=== PATIENT | female | born 1995 | race Caucasian/White ===

== ENCOUNTER 2019-10-24 10:26 | Emergency (ER) | payer MEDICAID, SELFPAY ==
[2019-10-24 10:56] VITALS: BP 116/76; PULSE 85; RESP 16; TEMP 36.6; O2SAT 100; BMI 24.1
== END 2019-10-24 12:16 | disposition left against medical advice (07) ==
LOC: ER 11-03 13:04
PROVIDERS: Emergency Provider Family Medicine; Family Provider Family Medicine
DX: H57.10 Ocular pain, unspecified eye (principal); Z53.21 Procedure and treatment not carried out due to patient leaving prior to being seen by health care provider
CPT/HCPCS: 99281

== ENCOUNTER 2022-02-22 20:03 | Outpatient (CLI) | payer MEDICAID, SELFPAY ==
[2022-02-22] VITALS (13 sets, daily range): BP systolic 126–128; BP diastolic 67–70; PULSE 131–144; RESP 17; TEMP 36.8–37.3; O2SAT 98–100; BMI 34.5
[2022-02-22 20:40] LABS: Add Urine Culture? No; Bacteria Urine TRACE /hpf; Bilirubin Urine Neg (Negative); Blood Urine Neg (Negative); Glucose Urine UA Trace (Normal); Ketones Urine 2+ (Negative); Leukocyte Esterase Urine Negative (Negative); Nitrate Urine Negative (Negative); Protein Urine Neg (Negative); RBC Urine 0-4 /hpf (0-2); Specific Gravity, Urine 1.015 (1.005-1.030); Squamous Epithelial Cell Urine 0-4 /hpf (0-5); Urine Appearance Clear (CLEAR); Urine Color Yellow (Yellow); Urobilinogen Urine Norm (Negative); WBC Urine 0-4 /hpf (0-5); pH Urine 6 (5-7)
[2022-02-22 21:14] LABS: Amphetamines Screen Urine Negative (Negative); Barbiturates Screen Urine Negative (Negative); Benzodiazepines Screen Urine Negative (Negative); Cocaine Screen Urine Negative (Negative); Opiate Screen Urine Negative (Negative); PCP Screen Urine Negative (Negative); THC Screen Urine Negative (Negative)
== END 2022-02-22 21:03 | disposition home or self-care (01) ==
LOC: OPOB 20:04 → OBGYN 20:06
PROVIDERS: Family Provider Obstetrics & Gynecology; Visit Provider Obstetrics & Gynecology
DX: O26.899 Other specified pregnancy related conditions, unspecified trimester (principal); Z3A.00 Weeks of gestation of pregnancy not specified; M54.50 Low back pain, unspecified
CPT/HCPCS: 80306; 81001; 99211

== ENCOUNTER 2022-02-22 21:09 | Emergency (ER) | payer MEDICAID, SELFPAY ==
[2022-02-22 21:23] VITALS: BP 131/86; PULSE 142; RESP 18; TEMP 37.3; O2SAT 100
--- NOTE | 2022-02-22 22:01 | ED_ITS ---
HPI - Abdominal Pain General: Chief Complaint: Abdominal Pain Stated Complaint: lower back pain/nausea/vomiting Time Seen by Provider: 02/22/22 22:01 History of Present Illness: Ms. Suarez is a 27-year-old lady currently approximately 20 weeks without care for this who presents to the emergency department due to low back pain and abdominal pain. She reports symptoms started approximately 1:30 PM at rest. She initially had low back pain which was bilateral and at about 630 this began to radiate towards her mid abdomen. Associated nausea and vomiting x2. Denies constipation or diarrhea. No urinary symptoms. No vaginal bleeding or discharge. She has had a total of 5 pregnancies including this 1 and no complications with exception of monitoring for possible preeclampsia which she did not develop. Otherwise denies infectious symptoms. Symptom intensity is moderate. Course has persisted. No other specific changes in health, exacerbating, or alleviating factors identified. Onset (ago): hour(s) Pain Consistency: constant Severity: mild Quality: aching Exacerbating factors: nothing Related Data: Date of Last Menstrual Period: 04/24/19 Review of Systems General: Reports: 10 or more systems reviewed and unremarkable except in HPI and below PFSH ED PFSH: Medical History No significant past medical history Surgical History No significant past surgical history Social History Smoking and tobacco status: never smoked Female Reproductive History: Date of last menstrual period: 04/24/19 Physical Exam Const: COMMON NORMALS: alert GENERAL APPEARANCE: cooperative and well developed HENMT: COMMON NORMALS: normocephalic and atraumatic HEAD & SCALP: normocephalic and atraumatic Eye: COMMON NORMALS: conjunctivae normal CONJUNCTIVA: Yes conjunctivae normal SCLERA: sclerae normal Neck/C-Spine: COMMON NORMALS: supple GENERAL: Yes trachea midline Resp: COMMON NORMALS: normal respiratory effort and clear to auscultation bilaterally EFFORT & INSPECTION: Yes able to speak in complete sentences AUSCULTATION: clear to auscultation bilaterally Cardio: COMMON NORMALS: regular rhythm RATE: tachycardic RHYTHM: regular rhythm GI: COMMON NORMALS: Soft to palpation PALPATION: Yes Soft to palpation, Yes Tenderness to palpation present (GI) (mildly), No Guarding due to palpation present (GI) and No Rigid due to palpation OTHER: gravid Extremity: GENERAL: Yes normal exam except as noted and No edema Neuro: COMMON NORMALS: moves all extremities SENSORIUM/ORIENTATION: Yes alert and No Orientation impaired Psych: COMMON NORMALS: mental status grossly normal and Normal thought process present THOUGHT PROCESS: Normal thought process present Course ED course: - Patient was seen and evaluated by me at bedside - Patient placed on cardiac monitors, IV access obtained - Initial evaluation notable for exam as above. Mild generalized abdominal tenderness though no evidence of peritonitis or focality. Gravid abdomen. - Labs and xrays personally interpreted by me -Fluids, antiemetic, Tylenol given - Labs notable for no leukocytosis, hemoglobin normal. Metabolic panel with mild evidence of dehydration. Urinalysis not concerning for urinary tract infection. Negative self swab wet prep. - Imaging notable for single live intrauterine gestation estimated 16 weeks 3 days. Not concordant dates discussed with patient. No acute pathology identified on ultrasound. -Patient felt markedly improved upon reassessment. Low likelihood of significant other intra-abdominal process. Tachycardia likely multifactorial including physiologic and I am satisfied with improvement with fluids given absence of shortness of breath or chest pain. - Based on patient history, evaluation, and testing as interpreted the most likely cause of the patient's condition is abdominal pain affecting - The results of ED evaluation were discussed with the patient including prescriptions and/or symptomatic cares (if applicable) including appropriate and responsible use, followup plan, and return precautions. The patient verbalized understanding and felt safe for discharge. - Patient discharged in satisfactory condition. Note: Click bubbles or prepopulated [place]keefe in note writing are used for assistance with data collection and billing and are inherently more limited than narrative and other text portions of this note. Please use narrative for additional clinical history and defer to narrative/free test for any case of contradictory information. If information appears in only free text or click bubble it should be considered present or absent as reported. Please contact note information writer for clarifications of clinical information or contradictory information. MDM is a brief summary, contradictory or erroneous seeming information should be clarified and full note should be reviewed. Vital Signs: Vital signs: Vital Signs Temperature 99.2 F 02/22/22 21:23 Pulse Rate 102 H 02/23/22 02:12 Respiratory Rate 16 02/23/22 02:12 Blood Pressure 119/66 02/23/22 02:12 Pulse Oximetry 98 02/23/22 02:12 MDM - Abdominal Pain Medical Decision Making 27-year-old lady estimated 20 weeks without care to this point presenting with low back pain radiating to abdomen. ED evaluation only notable for mild dehydration. Ultrasound performed. Patient improved upon reassessment. Patient plans to call and establish with her prior OB in the next day. Return precautions given. Satisfactory for outpatient management. Medical Records I reviewed the patient's medical records. Lab Data I reviewed the patient's lab results. : 02/22/22 22:19 02/22/22 22:19 Labs/Radiology: Radiology Impressions Obstetrics Ultrasound 02/22/22 22:15 IMPRESSION: 1. Single live intrauterine gestation of 16 weeks 3 days by ultrasound. Ultrasound and clinical dates are non concordant. 2. Normal Doppler evaluation of both ovaries. Laboratory Results WBC 5.6 10^3/uL (4.0-10.0) 02/22/22 22:19 RBC 4.19 10^6/uL (4.1-5.3) 02/22/22 22:19 Hgb 12.8 g/dL (11.5-15.3) 02/22/22 22:19 Hct 35.6 % (37.0-47.0) L 02/22/22 22:19 MCV 85.0 fl (81-99) 02/22/22 22:19 MCH 30.5 pg (28.0-34.0) 02/22/22 22:19 MCHC 36.0 g/dL (30.0-36.0) 02/22/22 22:19 RDW 12.3 % (12.1-15.1) 02/22/22 22:19 Plt Count 176 10^3/cmm (130-400) 02/22/22 22:19 MPV 10.7 fL (7.4-10.4) H 02/22/22 22:19 Neut % (Auto) 91.3 % 02/22/22 22:19 Lymph % (Auto) 3.2 % 02/22/22 22:19 [place] % (Auto) 4.8 % 02/22/22 22:19 Eos % (Auto) 0.0 % 02/22/22 22:19 Baso % (Auto) 0.2 % 02/22/22 22:19 Neut # (Auto) 5.10 10^3/uL (1.8-7.7) 02/22/22 22:19 Lymph # (Auto) 0.2 10^3/uL (0.8-4.8) L 02/22/22 22:19 [place] # (Auto) 0.3 10^3/uL (0.2-0.9) 02/22/22 22:19 Eos # (Auto) 0.0 10^3/uL (0.0-0.8) 02/22/22 22:19 Baso # (Auto) 0.0 10^3/uL (0.0-0.1) 02/22/22 22:19 Nucleated RBC % (auto) 0 % 02/22/22 22:19 Nucleated RBCs # 0.0 /100WBC 02/22/22 22:19 Sodium 133 mmol/L (136-145) L 02/22/22 22:19 Potassium 3.5 mmol/L (3.5-5.1) 02/22/22 22:19 Chloride 99 mmol/L (98-107) 02/22/22 22:19 Carbon Dioxide 21 mmol/L (22-29) L 02/22/22 22:19 Anion Gap 16.5 (5-19) 02/22/22 22:19 BUN 5 mg/dL (6-20) L 02/22/22 22:19 Creatinine 0.4 mg/dL (0.5-0.9) L 02/22/22 22:19 GFR Calculation 190.1 mL/min (90-130) H 02/22/22 22:19 Glucose 98 mg/dL (65-115) 02/22/22 22:19 Calculated Osmolality 273 mOsm/kg (285-295) L 02/22/22 22:19 Calcium 9.0 mg/dL (8.5-10.5) 02/22/22 22:19 Total Bilirubin 0.3 mg/dL (0.15-1.2) 02/22/22 22:19 AST 14 U/L (0-32) 02/22/22 22:19 ALT 17 U/L (0-33) 02/22/22 22:19 Alkaline Phosphatase 76 IU/L (35-105) 02/22/22 22:19 Total Protein 7.4 g/dL (6.6-8.7) 02/22/22 22:19 Albumin 4.2 g/dL (3.5-5.2) 02/22/22 22:19 Globulin 3.2 g/dL (1.3-4.6) 02/22/22 22:19 Lipase 17 U/L (13-60) 02/22/22 22:19 Urine Color Yellow (Yellow) 02/22/22 23:40 Urine Appearance Clear (CLEAR) 02/22/22 23:40 Urine pH 5 (5-7) 02/22/22 23:40 Ur Specific [place] 1.015 (1.005-1.030) 02/22/22 23:40 Urine Protein Neg (Negative) 02/22/22 23:40 Urine Glucose (UA) Norm (Normal) 02/22/22 23:40 Urine Ketones 2+ (Negative) H 02/22/22 23:40 Urine Blood Neg (Negative) 02/22/22 23:40 Urine Nitrate Negative (Negative) 02/22/22 23:40 Urine Bilirubin Neg (Negative) 02/22/22 23:40 Urine Urobilinogen Norm mg/dL (Negative) 02/22/22 23:40 Ur Leukocyte Esterase Negative (Negative) 02/22/22 23:40 Discharge Plan Discharge Patient Disposition: Home Clinical Impression: Back pain affecting , Abdominal pain affecting , Dehydration, mild Condition: Stable Prescriptions: New pyridoxine (vitamin B6) 25 mg tablet 25 mg PO TID PRN (Reason: nausea and vomiting) Qty: 20 0RF Sleep Aid (doxylamine) 25 mg tablet 25 mg PO TID PRN (Reason: nausea and vomiting) Qty: 20 0RF Discharge Orders: Discharge ED (Routine); Ordered 02/23/22 Ordered By: Sánchez Gayle Discharge Diet: Advance as tolerated and Clear Liquid Patient Instructions: Dehydration (ED), Abdominal Pain in (ED) Activity Restrictions/Additional Instructions: Thank you for visiting the emergency department. You were seen and evaluated for back pain and abdominal pain as well as nausea vomiting during . The exact cause of your symptoms is unclear though we are pleased that there improved with treatment. You may continue to use Tylenol as needed however do not use NSAIDs during . Please do not exceed the daily recommended dosage. Please follow-up on Saturday with your transportation security screener. Based on ultrasound your are 16 weeks 3 days. Please return to the emergency department for worsening symptoms or anything else that you are concerned about a feel needs emergency department evaluation. Coding Level of Care Code ED [employer] for Leah Loja
--- NOTE | 2022-02-22 22:15 | USR_ITS ---
PROCEDURE INFORMATION: Exam: US , Limited and US Duplex Artery or Vein, Ovaries, Limited Exam date and time: 02/22/2022 10:58 PM Age: 27 years old Clinical indication: complicated by abdominal or pelvic pain; Other: Bilateral pelvic pain radiating to the back today; Gestational age or lmp: Per lmp = 20w 3 d with christina = 07/09/2022; Per u/s = 16w 3d with christina = 08/06/2022; ; Patient HX: Back and pelvic pain, approx 20 weeks preg, no care. No vag bleed TECHNIQUE: Imaging protocol: Real-time ultrasound of the maternal uterus with image documentation. Exam focused on the clinical indication. Real-time duplex ultrasound scan of the arterial or venous flow of the ovaries with B-mode, color Doppler flow and spectral waveform analysis, limited duplex. COMPARISON: [facility] OB > 14 weeks 11/24/2018 8:35 AM FINDINGS: Gestation: Single live intrauterine gestation. heart rate: 164 beats per minute. presentation: Breech presentation. Placenta: Anterior placenta. The distal placental margin is not visible relative to the cervix. Amniotic fluid index: 10.8 cm. stomach: Limited anatomic evaluation demonstrates fluid in the stomach, no hydronephrosis grossly unremarkable brain, fluid in the urinary bladder, unremarkable spine, and both upper extremities. BIOMETRY: Gestational age (AUA): 16 weeks 3 days Estimated due date (AUA): 08/06/2022 by ultrasound (07/09/2022 by LMP) Estimated weight: 152 g Biparietal diameter (BPD): 16 weeks 3 days Head circumference (HC): 16 weeks 4 days Abdominal circumference (AC): 16 weeks 0 days Femur length (FL): 16 weeks 3 days MATERNAL: Right ovary/adnexa: The right ovary is morphologically normal. There is normal blood flow in the right ovary. The right ovary measures 4.1 x 3.3 x 3.1 cm. Left ovary/adnexa: The left ovary is morphologically normal. There is normal blood flow in the left ovary. The left ovary measures 3.7 x 3.4 x 1.9 cm. US/US OB >=14 wk fetus w transvag IMPRESSION: 1. Single live intrauterine gestation of 16 weeks 3 days by ultrasound. Ultrasound and clinical dates are non concordant. 2. Normal Doppler evaluation of both ovaries.
[2022-02-22] MEDS: sodium chloride 0.9% 1,000 ML 999 ML IV (22:20)
--- NOTE | 2022-02-22 22:20 | PC.NURSE ---
patient states headache has resolved. requesting something to eat and drink.
[2022-02-22 22:26] LABS: Basophils % 0.2 %; Hematocrit 35.6 % (37.0-47.0); Hemoglobin 12.8 g/dL (11.5-15.3); Lymphocytes # 0.2 10^3/uL (0.8-4.8); Lymphocytes % 3.2 %; Mean Corpuscular Hemoglobin 30.5 pg (28.0-34.0); Mean Platelet Volume 10.7 fL (7.4-10.4); Monocytes # 0.3 10^3/uL (0.2-0.9); Monocytes % 4.8 %; Neutrophils % 91.3 %; Nucleated Red Blood Cells % 0 %; Platelet Count 176 10^3/cmm (130-400); Red Blood Count 4.19 10^6/uL (4.1-5.3); Red Cell Distribution Width 12.3 % (12.1-15.1); White Blood Count 5.6 10^3/uL (4.0-10.0)
[2022-02-22] MEDS: acetaminophen 1,000 MG/100 ML PIGGYBACK 400 MG IV (22:35)
[2022-02-22] MEDS: ondansetron 2 mg/ML SDV 2 mL 4 MG IVP (22:36)
[2022-02-22 22:46] LABS: Alanine Aminotransferase 17 U/L (0-33); Albumin Level 4.2 g/dL (3.5-5.2); Alkaline Phosphatase 76 IU/L (35-105); Anion Gap 16.5 (5-19); Aspartate Amino Transferase 14 U/L (0-32); Blood Urea Nitrogen 5 mg/dL (6-20); Carbon Dioxide 21 mmol/L (22-29); Chloride 99 mmol/L (98-107); Globulin 3.2 g/dL (1.3-4.6); Glomerular Filtration Rate 190.1 mL/min (90-130); Glucose 98 mg/dL (65-115); Lipase 17 U/L (13-60); Osmolality Calculated 273 mOsm/kg (285-295); Potassium 3.5 mmol/L (3.5-5.1); Sodium 133 mmol/L (136-145); Total Bilirubin 0.3 mg/dL (0.15-1.2); Total Protein 7.4 g/dL (6.6-8.7)
[2022-02-22 23:48] LABS: Add Urine Microscopic? NO; Bilirubin Urine Neg (Negative); Blood Urine Neg (Negative); Charge for UA Resulting for Rev; Glucose Urine UA Norm (Normal); Ketones Urine 2+ (Negative); Leukocyte Esterase Urine Negative (Negative); Nitrate Urine Negative (Negative); Protein Urine Neg (Negative); Specific Gravity, Urine 1.015 (1.005-1.030); Urine Appearance Clear (CLEAR); Urine Color Yellow (Yellow); Urobilinogen Urine Norm (Negative); pH Urine 5 (5-7)
[2022-02-23 00:03] VITALS: BP 113/58; PULSE 125; RESP 18; O2SAT 98
[2022-02-23] MEDS: sodium chloride 0.9% 1,000 ML 999 ML IV (00:45)
[2022-02-23 01:30] VITALS: BP 116/77; PULSE 111; RESP 16; O2SAT 98
[2022-02-23 02:12] VITALS: BP 119/66; PULSE 102; RESP 16; O2SAT 98
== END 2022-02-23 02:13 | disposition home or self-care (01) ==
PROVIDERS: Emergency Medicine; Emergency Provider Emergency Medicine
DX: O99.891 Other specified diseases and conditions complicating pregnancy (principal); M54.50 Low back pain, unspecified; R10.9 Unspecified abdominal pain; O99.282 Endocrine, nutritional and metabolic diseases complicating pregnancy, second trimester; E86.0 Dehydration; Z3A.20 20 weeks gestation of pregnancy
CPT/HCPCS: 76805; 76817; 80053; 81003; 83690; 85025; 87210; 96361; 96374; 96375; 99284; J2405; J7030

== ENCOUNTER 2022-04-11 07:56 | Outpatient (CLI) | payer MEDICAID, SELFPAY ==
--- NOTE | 2022-04-11 08:01 | US_ITS ---
WS: [id number] ULTRASOUND OB COMPLETE TECHNIQUE: Complete ultrasound. CLINICAL INFORMATION: 2nd TRIMESTER SUPERVISION OF COMPARISON: February 22, 2022 FINDINGS: Cervix measures 3.1 cm Single interuterine gestation is identified with cephalic presentation. Placenta is anterior. Placenta grade 0. Normal amniotic fluid volume. cardiac activity: 147 BPM. AGA: 23w1d DONNA by ultrasound: 08/07/2022 Estimated weight: 561 g., %. BDP: 5.5 cm = 22w4d HC: 21.3 cm = 23w2d AC: 18.3 cm = 23w1d FEMUR LENGTH: 4.0 cm = 23w0d Anatomic survey: profile, lips/nose, and C-spine not visualized. Anatomic survey is otherwise normal. Normal stomach. Kidneys and bladder are normal. Normal 3 vessel cord. Normal 3 vessel cord insertion. Normal 4 chamber heart. Normal spine. Intracranial contents are normal. Normal posterior fossa and cisterna magna. US/US OB >= 14 weeks fetus [id number] IMPRESSION: 1. Single intrauterine with visualized cardiac activity. AGA 23w1d w ith DONNA 08/07/2022. 2. Placenta is anterior. No evidence of abruption or previa. 3. profile, lips/nose, and C-spine not visualized. Additional attempt co uld be performed in one to 2 weeks. 4. Anatomic survey otherwise normal. 5. Normal amniotic fluid volume.
== END 2022-04-11 07:57 | disposition home or self-care (01) ==
LOC: RAD 07:56
PROVIDERS: Visit Provider Family Medicine
DX: Z34.92 Encounter for supervision of normal pregnancy, unspecified, second trimester (principal); Z3A.23 23 weeks gestation of pregnancy
CPT/HCPCS: 76805

== ENCOUNTER 2022-08-07 11:35 | Inpatient (IN) | payer MEDICAID, SELFPAY ==
[2022-08-07] VITALS (45 sets, daily range): BP systolic 109–144; BP diastolic 59–83; PULSE 80–141; RESP 16–18; TEMP 36.1–36.3; O2SAT 98–100; BMI 37.4
[2022-08-07] MEDS: dextrose 5%-lactated ringers 1,000 ML 125 ML IV (12:19)
[2022-08-07] MEDS: oxytocin 30 UNIT/500 ML BAG IV (12:19)
[2022-08-07 12:23] LABS: Basophils % 0.1 %; Eosinophils % 0.5 %; Hemoglobin 11.9 g/dL (11.5-15.3); Lymphocytes # 1.3 10^3/uL (0.8-4.8); Lymphocytes % 15.6 %; Mean Corpuscular Hemoglobin 30.2 pg (28.0-34.0); Mean Corpuscular Volume 86.3 fl (81-99); Mean Platelet Volume 10.7 fL (7.4-10.4); Monocytes # 0.5 10^3/uL (0.2-0.9); Monocytes % 5.6 %; Neutrophils % 77.7 %; Nucleated Red Blood Cells % 0 %; Platelet Count 202 10^3/cmm (130-400); Red Blood Count 3.94 10^6/uL (4.1-5.3); Red Cell Distribution Width 12.8 % (12.1-15.1); White Blood Count 8.4 10^3/uL (4.0-10.0)
--- NOTE | 2022-08-07 18:17 | ANES.PREANE2 ---
Pre-Anesthetic Assessment Height/Weight: Height 1.68 m Weight 105.233 kg Temp Pulse Resp BP Pulse Ox O2 Del Method 97.0 F L 93 18 116/59 100 08/07/22 18:00 08/07/22 18:00 08/07/22 12:00 08/07/22 18:00 08/07/22 17:48 08/07/22 12:00 epidural Familial anesthetic complications: none Exam alert, oriented x 3, clear to auscultation bilaterally and regular rate & rhythm Airway Mallampati: Class II Dentition: full Anesthetic Plan ASA status: 2 Anesthesia: Regional (specify below) Risk of > 500 ml blood loss (7ml/kg in children): Yes, adequate IV access and fluids planned Medications/Allergies Home Medications Medication Instructions Recorded Confirmed Last Taken Type doxylamine succinate 25 mg tablet 25 mg PO TID PRN nausea and 02/23/22 Unknown Rx (Sleep Aid (doxylamine)) vomiting #20 tabs pyridoxine (vitamin B6) 25 mg 25 mg PO TID PRN nausea and 02/23/22 Unknown Rx tablet vomiting #20 tabs Allergies Allergy/AdvReac Type Severity Reaction Status Date / Time No Known Allergies Allergy Verified 02/22/22 20:57 Current Medications Generic Name Dose Route Start Last Admin Trade Name Freq PRN Reason Stop Dose Admin Dextrose/Lactated Ringer's 1,000 mls @ 125 mls/hr 08/07/22 12:00 08/07/22 12:19 Dextrose 5%-Lactated Ringers IV 125 mls/hr .Q8H BUD Administration Oxytocin 30 unit in 500 mls @ 1 mls/hr 08/07/22 12:00 08/07/22 14:35 Pitocin IV 20 milliunit/min .Q24H BUD 20 mls/hr Titration Protocol 1 MILLIUNIT/MIN PFSH Anesthesia Medical History No significant past medical history Surgical History No significant past surgical history Social History Smoking and tobacco status: never smoked Female Reproductive History Date of last menstrual period: 04/24/19 : 5 Data Anesthesia 08/07/22 12:00 Short CBC 08/07/22 Range/Units 12:00 WBC 8.4 (4.0-10.0) 10^3/uL Hgb 11.9 (11.5-15.3) g/dL Hct 34.0 L (37.0-47.0) % MCV 86.3 (81-99) fl Plt Count 202 (130-400) 10^3/cmm Neut % (Auto) 77.7 % Neut # (Auto) 6.50 (1.8-7.7) 10^3/uL Cardiac Studies: No Data to Display Anesthesia Procedures Epidural Time Out Performed: Yes Consents Signed: Procedure Consent Consent: requested by attending/covering physician and patient agrees to proceed Lumbar Level: L3-L4 Epidural position: sitting Epidural procedure: sterile prep of area, 1% lidocaine to numb the area, 18 g needle, negative for paresthesia passed, neg for paresthesia, test dose given, 1.5% xylocaine 1:200k epi (5 ml), 0.2% Ropivacaine bolus ml ( 5), placed PCEA, no systemic response, sterile dressing applied, L.U.D. no apparent complications and 0.2% Ropiavacaine @ mls/hr
--- NOTE | 2022-08-07 20:45 | P.PCNOB_ITS ---
Delivery Note: Date of delivery: August 07, 2022 Procedure: Normal spontaneous vaginal Delivering Physician: Crystal Gandhi MD Estimated blood loss (mL): 300 Pre-Delivery Course: Mother had routine care at [facility]. She was blood type B+ antibody negative, rubella immune, HIV nonreactive, hepatitis B nonreactive, hepatitis C nonreactive, RPR nonreactive, UDS negative, GC chlamydia negative, she passed her glucose tolerance test, GBS negative. There were no complications during the . Delivery: This is a 27-year-old at 40 weeks 1 day gestation who presented for an elective induction. Her cervix was favorable so she was started on Pitocin. She received an epidural for pain management. She underwent artificial rupture of membranes with clear fluid. Rupture membranes was approximately 3-1/2 hours prior to delivery. She had a normal spontaneous vaginal delivery of a viable female weight 3690 g, Apgars 8 and 9 over an intact perineum. The was suctioned at delivery and placed on the mother's chest. The cord was clamped and cut. The placenta was delivered grossly intact and normal to inspection. There were no lacerations. Mother and were doing well after delivery. Coding Level of Care Code Acute Mobile Home Set Up Person for Leah Loja
--- NOTE | 2022-08-07 20:45 | PM.OPHPUD ---
Labor & Delivery H&P Update Date of Procedure: August 07, 2022 Date H&P Performed: 08/02/22 Admission Diagnosis: Planned procedure: induction of labor
[2022-08-07] MEDS: ibuprofen 800 mg tablet PO (23:14)
[2022-08-08 01:35] VITALS: BP 129/73; PULSE 111; RESP 16; TEMP 36.7; O2SAT 97
[2022-08-08 02:35] VITALS: BP 114/67; PULSE 89; RESP 16; O2SAT 96
[2022-08-08 06:35] VITALS: BP 133/78; PULSE 90; RESP 16; O2SAT 96
--- NOTE | 2022-08-08 08:00 | ANE.PACU2 ---
Inpatient post-anesthesia follow up: Airway intact: Yes Vital signs: Temperature 97.9 F Pulse Rate 82 Respiratory Rate 16 Blood Pressure 125/82 Pulse Oximetry 98 Oxygen Delivery Me thod Room Air Oxygen Flow Rate Fraction of Inspir ed Oxygen Hydration adequate: Yes Nausea and vomiting: No Pain level: 1 Mental status: Baseline
[2022-08-08] MEDS: prenatal vitamin Capsule 1 CAP PO (08:46)
[2022-08-08] MEDS: ibuprofen 800 mg tablet PO ×2 (08:46→15:11)
[2022-08-08] MEDS: docusate sodium 100 mg Capsule PO ×2 (08:46→18:24)
[2022-08-08 09:02] LABS: Hematocrit 33.1 % (37.0-47.0); Hemoglobin 11.1 g/dL (11.5-15.3); Mean Corpuscular HGB Conc 33.5 g/dL (30.0-36.0); Mean Corpuscular Hemoglobin 29.8 pg (28.0-34.0); Mean Corpuscular Volume 88.7 fl (81-99); Platelet Count 185 10^3/cmm (130-400); Red Blood Count 3.73 10^6/uL (4.1-5.3); Red Cell Distribution Width 13.1 % (12.1-15.1); White Blood Count 9.5 10^3/uL (4.0-10.0)
[2022-08-08 10:00] VITALS: BP 129/84; PULSE 78; RESP 16; TEMP 36.7
[2022-08-08 16:00] VITALS: BP 135/84; PULSE 78; RESP 16; TEMP 36.8; O2SAT 98
--- NOTE | 2022-08-08 17:00 | PM.DCS ---
Discharge Providers Date of Admission: 08/07/22 11:35 Date of Discharge: August 08, 2022 Attending Provider at Admission: Crystal Gandhi MD Attending Provider at Discharge: Crystal Gandhi MD Reason for Visit Reason for Visit: Induction of Labour Hospital Course Hospital Course This is a 27-year-old G5 now P5 who was admitted for an elective induction at 40 weeks 1 day gestation. She had a normal spontaneous vaginal delivery of a viable female . She and the have done well . She is requesting discharge home at 24 hours. She says her bleeding is not bad and she does not have any significant pain. Physical Exam Narrative: Alert and oriented, sitting up in bed eating dinner. Abdomen soft nontender, fundus is firm and U- 3, extremities have 1+ edema but no calf tenderness Urinary Catheter Management: Moreno: Cath Placed During This Visit: yes, but has since been removed by the nurse Reason for Continuing Indwelling Catheter: Required Immobilization for Trauma or Surgery or Anesthesia Urinary Catheter Date of Insertion: 08/07/22 Urinary Catheter Time of Insertion: 17:45 Date Urinary Catheter Removed: 08/07/22 Time Urinary Catheter Discontinued: 20:23 Discharge Data Studies Completed and Pending Laboratory Results WBC 9.5 10^3/uL (4.0-10.0) 08/08/22 08:50 RBC 3.73 10^6/uL (4.1-5.3) L 08/08/22 08:50 Hgb 11.1 g/dL (11.5-15.3) L 08/08/22 08:50 Hct 33.1 % (37.0-47.0) L 08/08/22 08:50 MCV 88.7 fl (81-99) 08/08/22 08:50 MCH 29.8 pg (28.0-34.0) 08/08/22 08:50 MCHC 33.5 g/dL (30.0-36.0) 08/08/22 08:50 RDW 13.1 % (12.1-15.1) 08/08/22 08:50 Plt Count 185 10^3/cmm (130-400) 08/08/22 08:50 MPV 11.0 fL (7.4-10.4) H 08/08/22 08:50 Neut % (Auto) 77.7 % 08/07/22 12:00 Lymph % (Auto) 15.6 % 08/07/22 12:00 [place] % (Auto) 5.6 % 08/07/22 12:00 Eos % (Auto) 0.5 % 08/07/22 12:00 Baso % (Auto) 0.1 % 08/07/22 12:00 Neut # (Auto) 6.50 10^3/uL (1.8-7.7) 08/07/22 12:00 Lymph # (Auto) 1.3 10^3/uL (0.8-4.8) 08/07/22 12:00 [place] # (Auto) 0.5 10^3/uL (0.2-0.9) 08/07/22 12:00 Eos # (Auto) 0.0 10^3/uL (0.0-0.8) 08/07/22 12:00 Baso # (Auto) 0.0 10^3/uL (0.0-0.1) 08/07/22 12:00 Nucleated RBC % (auto) 0 % 08/07/22 12:00 Nucleated RBCs # 0.0 /100WBC 08/07/22 12:00 Vitals Last Vital Signs Temp 98.2 F 08/08/22 16:00 Pulse 78 08/08/22 16:00 Resp 16 08/08/22 16:00 BP 135/84 08/08/22 16:00 Pulse Ox 98 08/08/22 16:00 O2 Del Method 08/08/22 16:00 Discharge Plan Discharge Patient Disposition: Home Condition: Stable Prescriptions: Continued pyridoxine (vitamin B6) 25 mg tablet 25 mg PO TID PRN (Reason: nausea and vomiting) Qty: 20 0RF Sleep Aid (doxylamine) 25 mg tablet 25 mg PO TID PRN (Reason: nausea and vomiting) Qty: 20 0RF Discharge Orders: Discharge Order (Routine); Ordered 08/08/22 Ordered By: Crystal Gandhi Referrals: Crystal Gandhi MD [Physician] - 1 month Discharge Diet: Usual diet Discharge Activity: Limit activity as instructed Patient Instructions: Depression (DC), Bleeding (DC), Preeclampsia and Eclampsia After Delivery (GEN), OB Discharge Report, OB Food/Drug Interaction Guide, Opioid Safety, OB Home Care, OB Vaginal Deliveries Discharge Attestations Time Spent in Discharge Care*: less than 30 min Quality Metrics Clinical Quality Measures [ No reported AMI, CVA or VTE this stay] Coding Level of Care Code Acute Chg DC note
[2022-08-08 20:54] VITALS: BP 125/82; PULSE 82; RESP 16; TEMP 36.6; O2SAT 98
== END 2022-08-08 20:55 | disposition home or self-care (01) | DRG 807 ==
PROVIDERS: Admitting Provider Family Medicine; Visit Provider Family Medicine
DX: O48.0 Post-term pregnancy (principal); Z37.0 Single live birth; Z3A.40 40 weeks gestation of pregnancy
CPT/HCPCS: 36415; 51702; 59025; 59409; 85025; 85027; 99211; J2590; J2795; J7121

== ENCOUNTER 2024-11-04 10:30 | Inpatient (IN) | payer MEDICAID, SELFPAY ==
[2024-11-04] VITALS (56 sets, daily range): BP systolic 111–179; BP diastolic 56–128; PULSE 75–148; TEMP 36.2–36.4; O2SAT 100; BMI 38.0
--- OUTSIDE RECORDS SUMMARY | 2024-11-04 10:43 | XMS_ITS | Data Portability ---
Author Organization ALBA Mccrary [facility] Adelaida Ro [facility] Address [address] [address] Assessment No assessment recorded. Plan of Treatment Reminders Order Date Submit Date Provider Last Modified By Organization Details Last Modified Time Details Appointments None recorded. Lab streptococc us group B, culture, unspecified specimen [address] [facility], [address] [facility] [place], [address], 13:32:26 Referral None recorded. Procedures None recorded. Surgeries None recorded. Imaging None recorded. Medication Orders None recorded. Patient TargetsNo targets recorded. Patient InstructionsNo instructions recorded. Reason for Referral None Reported. Results Created Date Observation Date Name Description Value Unit Range Abnormal Flag Note LastModifiedBy Organization Detail LastModifiedTime 10/08/1910/11/2024 STREP TOCOC CUS, GROUP B CULTU RE streptococcu s, group B culture SEE NOTE STREP TOCOC CUS, GROUP B CULTU RE Micro Numbe r: [id number] Test Statu s: Final Speci men Sourc e: Vagin al/an orect al Speci men Quali ty: Adequ ate Resul t: No group B Strep tococ cus isola ruddy Note per CDC guide lines optim al recov magda is achie verona by swabb ing both the lower vagin a and rectu m (thro ugh the anal sphin cter) . Not Available [facility] [id number], [place], [address], 10/11/2024 13:32:26 Result Notes None recorded. Problems Name Problem SNOMED Code Status Onset Date Resolution Date Notes Provider Name and Address Organization Details Recorded Time [id number] Active MICHAEL LOMELIH BRANDI [facility] 4 15:33:09 Problem Notes None recorded. Procedures Surgical History Date Name Laterality Status Provider Name and Address Organization Details Recorded Time 06/10/2024 Date of Last Pap Smear completed MICHAEL LOMELIH BRANDI [facility] 08/12/2024 14:41:56 Imaging Results None recorded. Procedure Notes None recorded. Medical Equipment None Reported. Allergies No known drug allergies Medications Name Sig Start Date Stop Date Status Note LastModified by Organization Details LastModified Time 28 mg iron-800 mcg tablet Take 1 tablet every day by oral route for 90 days. active Not Available Not Available Not Avai lable M-Marielle Plus 27 mg iron-1 mg tablet TAKE ONE TABLET BY MOUTH EVERY DAY FOR 90 DAYS. 2024 completed Not Available Not Available Not Available Vitals Date Recorded Body height Body mass index (BMI) Body weight Body temperature Oxygen saturation Oxygen saturation in Arterial blood by Pulse oximetry Heart rate Systolic blood pressure Diastolic blood pressure Provider Name and Address Organization Details Last Updated DateTime 5 165.1 cm 38.1 kg/m2 501269. 65 g 97.9 [degF] 99 % 99 % 101 /min 120 mm[Hg] 80 mm[Hg] MICHAEL LOMELIH BRANDI [facility]ika 5 15:52:59 Date Recorded Body height Body mass index (BMI) Body weight Body temperature Oxygen saturation Oxygen saturation in Arterial blood by Pulse oximetry Heart rate Systolic blood pressure Diastolic blood pressure Provider Name and Address Organization Details Last Updated DateTime 5 165.1 cm 37.9 kg/m2 824213. 06 g 97.4 [degF] 99 % 99 % 72 /min 128 mm[Hg] 82 mm[Hg] JAE CONNER [facility], L.L[facility]CM[facility]ika 5 15:51:22 Date Recorded Body height Body mass index (BMI) Body weight Body temperature Oxygen saturation Oxygen saturation in Arterial blood by Pulse oximetry Heart rate Systolic blood pressure Diastolic blood pressure Provider Name and Address Organization Details Last Updated DateTime 5 165.1 cm 37.9 kg/m2 118512. 06 g 98.1 [degF] 99 % 99 % 92 /min 130 mm[Hg] 78 mm[Hg] MICHAEL MUKESH [facility] 5 14:06:46 Date Recorded Body height Body mass index (BMI) Body weight Body temperature Oxygen saturation Oxygen saturation in Arterial blood by Pulse oximetry Heart rate Systolic blood pressure Diastolic blood pressure Provider Name and Address Organization Details Last Updated DateTime 5 165.1 cm 38.4 kg/m2 972544. 94079 g 97.4 [degF] 99 % 99 % 97 /min 126 mm[Hg] 72 mm[Hg] JAE CONNER [facility] 5 14:26:16 Date Recorded Body height Body mass index (BMI) Body weight Body temperature Oxygen saturation Oxygen saturation in Arterial blood by Pulse oximetry Heart rate Systolic blood pressure Diastolic blood pressure Provider Name and Address Organization Details Last Updated DateTime 5 165.1 cm 38.4 kg/m2 767062. 84 g 97.2 [degF] 99 % 99 % 102 /min 100 mm[Hg] 70 mm[Hg] MICHAEL MUKESH BRANDI [facility] 5 15:59:29 Social History None recorded. Functional Status None recorded. Mental Status None recorded. Family History Relationship Description Onset Age of this Age Resolved Age Notes LastModified by Organization Details LastModified Time Father No current problems or disability [email or web address] Not available 15:36:12 Mother No current problems or disability [email or web address] Not available 15:36:12 Medical History Condition Response Coronary Artery Disease N Other N Gout N Kidney Stones N Blood Diseases N Hyperthyroidism N Breast Cancer N Blood Transfusion N Depression N COPD N Lung Disease N Hypothyroidism N Developmental or Behavioral Disorders N Defects or Inherited Disease N Breast Problem N Difficulty Swallowing N Anesthesia Complications N Meniere's disease N Anxiety Disorder N Muscle, Joint, or Bone Problems N Vision or Eye Problems N Arthritis N Polyps N Infertility N Cancer N Varicosities N Stroke N Endometriosis N Bladder or Kidney Problems N High Cholesterol N Liver Disease N Headaches N Fibromyalgia N Kidney Disease N Allergies/Hayfever N Heart Problems N Ear or Hearing Problems N Hospitalizations N Thyroid Problems N GI Problems N ADD/ADHD N Skin Problems N Eating Disorder N Anemia N Constipation N Mental Illness N Ovarian Cancer N Diabetes N Bedwetting N Seizures/Epilepsy N Tuberculosis N Eczema N Diverticulitis N Abuse/Domestic Violence N Asthma N Reflux/GERD N Hepatitis N Heart Disease N Pulmonary Embolism N Pre-Eclampsia N Hypertension N Chronic Ear Infections N Osteoporosis N Chicken Pox N Autism Spectrum Disorder (ASD) N Thrombophilias N Gynecological History Statement/Question Response Abnormal Pap N Date of Last Pap Smear 06/10/2024 Obstetrics History GPAL:G 6 P 5 0 0 5 Type Value Full Term 5 Living 5 Total 6 Immunizations Vaccine Type Date Status Note Provider Nam e and Address Organization Details Recorded Time Tdap 7 completed Not Available [facility] 03/23/2023 02:23:25 Tdap 9 completed Not Available [facility] 03/23/2023 02:23:25 Influenza, split virus, trivalent, preservative 0 completed Not Available [facility] 03/23/2023 02:23:25 Influenza, split virus, trivalent, preservative 6 completed Not Available [facility] 03/23/2023 02:23:25 Influenza, split virus, trivalent, preservative 8 completed Not Available [facility] 03/23/2023 02:23:25 Past Encounters Encounter ID Performer Location Encounter Start Date Encounter Closed Date Diagnosis/Indication Diagnosis SNOMED-CT Code Diagnosis ICD10 Code Diagnosis Note [id number] Crystal Gandhi MD [facility] ([facility]) [address] [place] [address] 05/11/2024 15:24:29 05/12/2024 15:38:35 test positive 655565046 Z32.01 The patient has not started a yet. 1 will be sent to her pharmacy. Uterine si ze for dates discrepancy 764315808 O26.849 Patient's uterus is palpable above the symphysis but does seem slightly smaller than expected for a multigravi da at almost 17 weeks gestation. I would like to proceed with an early ultrasound to get accurate dating. [id number] [facility] ([facility]) [address] [place] [address] 05/13/2024 16:10:06 05/14/2024 15:11:39 Uterine size for dates discrepancy 461155451 O26.849 Patient's uterus is palpable above the symphysis but does seem slightly smaller than expected for a multigravi da at almost 17 weeks gestation. I would like to proceed with an early ultrasound to get accurate dating. [id number] Crystal Gandhi MD [facility] ([facility]) [address] [place] [address] 06/10/2024 12:58:38 06/10/2024 15:19:23 Gestation period, 19 weeks 37026486 Z3A.19 Normal pre gnancy in multigravida 5756766462 14097 Z34.82 [id number] KIM KANDICE [facility] ([facility]) [address] [place] [address] 06/22/2024 15:34:52 06/23/2024 09:59:11 [id number] Crystal Gandhi MD [facility] ([facility]) [address] [place] [address] 07/15/2024 12:22:09 07/15/2024 16:04:59 Gestation period, 24 weeks 360694913 Z3A.24 Normal pre gnancy in multigravida 8908434290 65597 Z34.82 [id number] Crystal Gandhi MD [facility] ([facility]) [address] [place] [address] 5 08/12/2024 14:32:43 08/12/2024 17:30:27 Gestation period, 24 weeks 538223138 Z3A.24 Gestation period, 28 weeks 34926545 Z3A.28 Normal pre gnancy in multigravida 3624944535 63387 Z34.82 [id number] Crystal Gandhi MD [facility] ([facility]) [address] [place] [address] 5 08/24/2024 14:34:38 08/24/2024 15:34:00 Gestation period, 29 weeks 69265881 Z3A.29 Normal pre gnancy in multigravida 2089029612 99363 Z34.82 Counseling for sterilization done 7412578208 9103 Z30.09 m-caid form signed. [id number] KIM WOODSON [facility] ([facility]) [address] [place] [address] 09/07/2024 14:35:43 09/09/2024 04:09:11 [id number] Crystal Gandhi MD [facility] ([facility]) [address] [place], [place] [address] 09/07/2024 15:21:14 09/08/2024 09:55:32 Gestation period, 31 weeks 28424861 Z3A.31 Normal pre gnancy in multigravida 9743599596 66575 Z34.82 [id number] Crystal Gandhi MD [facility] ([facility]) [address] [place] [address] 09/21/2024 15:37:38 09/24/2024 11:47:23 Gestation period, 33 weeks 24430537 Z3A.33 Normal pre gnancy in multigravida 4924443646 64647 Z34.82 [id number] Crystal Gandhi MD [facility] ([facility]) [address] [place] [address] 5 10/08/2024 15:46:09 10/09/2024 10:35:06 Normal in multigravida 2289306129 60993 Z34.82 Gestation period, 36 weeks 60637160 Z3A.36 [id number] Crystal Gandhi MD [facility] ([facility]) [address] [place] [address] 10/15/2024 13:47:36 10/15/2024 15:12:29 Gestation period, 37 weeks 65857028 Z3A.37 Normal pre gnancy in multigravida 4416991089 59615 Z34.82 [id number] Crystal Gandhi MD [facility] ([facility]) [address] [place] [address] 5 10/22/2024 14:19:48 10/22/2024 17:26:37 Gestation period, 38 weeks 56602105 Z3A.38 Normal pre gnancy in multigravida 3636418299 61632 Z34.82 Health Concerns Section Related Observation LastModified by Organization Detai ls LastModified Time None Recorded Concern Status LastModified by Organization Details LastModified Time None Recorded Advance Directives Directive None Recorded Payers Encounter Date Sequence Insurance Name Policy Number Policy Laguerre Covered Member ID Laguerre Member ID Guarantor Name 09/21/2024 1 [facility] (MEDICAID HMO) Key Suarez [id number] Key Suarez 10/08/2024 1 [facility] (MEDICAID HMO) Key Suarez [id number] Key Suarez 10/15/2024 1 [facility] ([employer]ICAID HMO) Key Suarez [id number] Key Suarez 10/22/2024 1 [facility] (MEDICAID HMO) Key Suarez [id number] Key Suarez Notes Date Note Type Note Provider Name and Address Organization Details Recorded Time 09/21/2024 text/html ob routineRep orted bypatient.Associated Symptoms:no abdominal pain; no contractions; normal movement; no bleeding; no dysuria; no nausea; no emesis; no constipation; no headache; no dizziness;cramping;ed darcie Crystal Gandhi MD [address] [place] [address], [phone], [facility], L.L.CMarika 09/21/2024 16:10:29 10/08/2024 text/html ob routineRep orted bypatient.Associated Symptoms:no abdominal pain; no cramping; no contractions; normal movement; no bleeding; no dysuria; no frequency; no urgency; no fever; no nausea; no emesis; no constipation; no edema; no headache; no dizziness Crystal Gandhi MD [address] [place] [address], [phone], [facility], L.L.CMarika 10/08/2024 16:30:36 10/15/2024 text/html ob routineRep orted bypatient.Associated Symptoms:normal movement; no bleeding; no dysuria; no nausea; no emesis; no edema; no headache; no dizziness;abdominal pain;cramping;contrac tions Crystal Gandhi MD [address] [place], [address], [facility], Adelaida 10/15/2024 14:27:50 10/22/2024 text/html ob routineRep orted bypatient.Associated Symptoms:no abdominal pain; no cramping; no contractions; normal movement; no bleeding; no dysuria; no frequency; no nausea; no emesis; no constipation; no edema; no headache; no dizziness Crystal Gandhi MD [address] [place], [address], [facility], Adelaida 10/22/2024 14:59:06 OBGyn Episode Ob Episode Information Episode Created Date Number of Fetuses Patient Bloodtype Patient rh Status Prepregnancy Weight lbs Domestic Partner Domestic Partner Phone Father Name Field Service Poultry Technician Status 05/11/20 24 1 CLOSED Fetus Data First Name Last Name Admitted to NICU Weight (g) Sex Living Outcome Pediatric Complications Fetus ID Race Codes Race Delivery Type 5726 Rl Calculation Initial Rl Date Initial Exam Date Initial Exam Provider Initial Ultrasound Date Last Menstrual Period Date Ultra Sound Weeks Gestation 0 Eighteen To Twenty Week Rl Update Ultra Sound Date Fundal Height At Umbil Quickening Date Ultra Sound Latest Weeks Gestation Final Rl Confirmed By Final Rl Confirmed Date Final Rl Date Ultra Sound Latest Days Gestation 0 0 Menstrual History Last Menstrual Date Menses Monthly On Bcp Conception Prior Menses Frequency Hcg Plus Date Menarche Onset Age Delivery Information Delivery Date Delivery Type Labor Anesthesia Weeks Gestation Incision Type Labor Labor Length Hrs Delivered By Post Complications Tubal Sterilization Discharge Date Comments 3 40 Discharge Information Feeding Method Contraceptive Method Maternal HG B and HCT Levels Ob Episode Information Episode Created Date Number of Fetuses Patient Bloodtype Patient rh Status Prepregnancy Weight lbs Domestic Partner Domestic Partner Phone Father Name Field Service Poultry Technician Status 05/11/20 24 1 CLOSED Fetus Data First Name Last Name Admitted to NICU Weight (g) Sex Living Outcome Pediatric Complications Fetus ID Race Codes Race Delivery Type 5728 Rl Calculation Initial Rl Date Initial Exam Date Initial Exam Provider Initial Ultrasound Date Last Menstrual Period Date Ultra Sound Weeks Gestation 0 Eighteen To Twenty Week Rl Update Ultra Sound Date Fundal Height At Umbil Quickening Date Ultra Sound Latest Weeks Gestation Final Rl Confirmed By Final Rl Confirmed Date Final Rl Date Ultra Sound Latest Days Gestation 0 0 Menstrual History Last Menstrual Date Menses Monthly On Bcp Conception Prior Menses Frequency Hcg Plus Date Menarche Onset Age Delivery Information Delivery Date Delivery Type Labor Anesthesia Weeks Gestation Incision Type Labor Labor Length Hrs Delivered By Post Complications Tubal Sterilization Discharge Date Comments 9 40 Discharge Information Feeding Method Contraceptive Method Maternal HG B and HCT Levels Ob Episode Information Episode Created Date Number of Fetuses Patient Bloodtype Patient rh Status Prepregnancy Weight lbs Domestic Partner Domestic Partner Phone Father Name Field Service Poultry Technician Status 05/11/20 24 1 CLOSED Fetus Data First Name Last Name Admitted to NICU Weight (g) Sex Living Outcome Pediatric Complications Fetus ID Race Codes Race Delivery Type 5729 Rl Calculation Initial Rl Date Initial Exam Date Initial Exam Provider Initial Ultrasound Date Last Menstrual Period Date Ultra Sound Weeks Gestation 0 Eighteen To Twenty Week Rl Update Ultra Sound Date Fundal Height At Umbil Quickening Date Ultra Sound Latest Weeks Gestation Final Rl Confirmed By Final Rl Confirmed Date Final Rl Date Ultra Sound Latest Days Gestation 0 0 Menstrual History Last Menstrual Date Menses Monthly On Bcp Conception Prior Menses Frequency Hcg Plus Date Menarche Onset Age Delivery Information Delivery Date Delivery Type Labor Anesthesia Weeks Gestation Incision Type Labor Labor Length Hrs Delivered By Post Complications Tubal Sterilization Discharge Date Comments 2 40 Discharge Information Feeding Method Contraceptive Method Maternal HG B and HCT Levels Ob Episode Information Episode Created Date Number of Fetuses Patient Bloodtype Patient rh Status Prepregnancy Weight lbs Domestic Partner Domestic Partner Phone Father Name Field Service Poultry Technician Status 05/11/20 24 1 CLOSED Fetus Data First Name Last Name Admitted to NICU Weight (g) Sex Living Outcome Pediatric Complications Fetus ID Race Codes Race Delivery Type 5725 Rl Calculation Initial Rl Date Initial Exam Date Initial Exam Provider Initial Ultrasound Date Last Menstrual Period Date Ultra Sound Weeks Gestation 0 Eighteen To Twenty Week Rl Update Ultra Sound Date Fundal Height At Umbil Quickening Date Ultra Sound Latest Weeks Gestation Final Rl Confirmed By Final Rl Confirmed Date Final Rl Date Ultra Sound Latest Days Gestation 0 0 Menstrual History Last Menstrual Date Menses Monthly On Bcp Conception Prior Menses Frequency Hcg Plus Date Menarche Onset Age Delivery Information Delivery Date Delivery Type Labor Anesthesia Weeks Gestation Incision Type Labor Labor Length Hrs Delivered By Post Complications Tubal Sterilization Discharge Date Comments 2 40 Discharge Information Feeding Method Contraceptive Method Maternal HG B and HCT Levels Ob Episode Information Episode Created Date Number of Fetuses Patient Bloodtype Patient rh Status Prepregnancy Weight lbs Domestic Partner Domestic Partner Phone Father Name Field Service Poultry Technician Status 05/11/20 24 1 B Positive OPEN Fetus Data First Name Last Name Admitted to NICU Weight (g) Sex Living Outcome Pediatric Complications Fetus ID Race Codes Race Delivery Type 5730 Rl Calculation Initial Rl Date Initial Exam Date Initial Exam Provider Initial Ultrasound Date Last Menstrual Period Date Ultra Sound Weeks Gestation 11/03/2024 05/11/2024 05/13/2024 01/14/2024 15 Eighteen To Twenty Week Rl Update Ultra Sound Date Fundal Height At Umbil Quickening Date Ultra Sound Latest Weeks Gestation Final Rl Confirmed By Final Rl Confirmed Date Final Rl Date Ultra Sound Latest Days Gestation 0 0 Pre-marielle Flowsheet Flowsheet Date 05/11/2024 Mott Score Blood Edema Fundus Height Fundus Units Glucose Ketones Leukocytes Nitrite Labor Signs Protein Cervic Dilation Cervic Effacement Cervic Station Type Weight in lbs Pre/Post Dialysis Refused Weight 254.794280753639 BP Diastolic BP Location Tested BP Systolic BP Type 70 120 Fetus Heart Rate Present Fetus Movement Comments Possibly wants tubal. Flowsheet Date 05/13/2024 Mott Score Blood Edema Fundus Height Fundus Units Glucose Ketones Leukocytes Nitrite Labor Signs Protein Cervic Dilation Cervic Effacement Cervic Station Type Weight in lbs Pre/Post Dialysis Refused BP Diastolic BP Location Tested BP Systolic BP Type Fetus Heart Rate Present Fetus Movement Comments Flowsheet Date 06/10/2024 Mott Score Blood Edema Fundus Height Fundus Units Glucose Ketones Leukocytes Nitrite Labor Signs Protein Cervic Dilation Cervic Effacement Cervic Station 20 cm Type Weight in lbs Pre/Post Dialysis Refused Weight 212.519296515719 BP Diastolic BP Location Tested BP Systolic BP Type 65 120 Fetus Heart Rate Present A 155 Fetus Movement Comments Boy, (B and names) Flowsheet Date 06/22/2024 Mott Score Blood Edema Fundus Height Fundus Units Glucose Ketones Leukocytes Nitrite Labor Signs Protein Cervic Dilation Cervic Effacement Cervic Station Type Weight in lbs Pre/Post Dialysis Refused BP Diastolic BP Location Tested BP Systolic BP Type Fetus Heart Rate Present Fetus Movement Comments Flowsheet Date 07/15/2024 Mott Score Blood Edema Fundus Height Fundus Units Glucose Ketones Leukocytes Nitrite Labor Signs Protein Cervic Dilation Cervic Effacement Cervic Station 25 cm none none neg Type Weight in lbs Pre/Post Dialysis Refused Weight 220.721109781850 BP Diastolic BP Location Tested BP Systolic BP Type 70 105 Fetus Heart Rate Present A 150 Fetus Movement A Yes Comments gluc next Flowsheet Date 08/12/2024 Mott Score Blood Edema Fundus Height Fundus Units Glucose Ketones Leukocytes Nitrite Labor Signs Protein Cervic Dilation Cervic Effacement Cervic Station 28 cm none trace trace Type Weight in lbs Pre/Post Dialysis Refused Weight 227.0360387555 BP Diastolic BP Location Tested BP Systolic BP Type 60 115 Fetus Heart Rate Present A 145 Fetus Movement A Yes Comments kick counts handout. Flowsheet Date 08/24/2024 Mott Score Blood Edema Fundus Height Fundus Units Glucose Ketones Leukocytes Nitrite Labor Signs Protein Cervic Dilation Cervic Effacement Cervic Station 32 cm none none trace Type Weight in lbs Pre/Post Dialysis Refused Weight 227.8531639888 BP Diastolic BP Location Tested BP Systolic BP Type 60 100 Fetus Heart Rate Present A 132 Fetus Movement A Yes Comments 123/12.6, Tubal consent in r oom to go over with Flowsheet Date 09/07/2024 Mott Score Blood Edema Fundus Height Fundus Units Glucose Ketones Leukocytes Nitrite Labor Signs Protein Cervic Dilation Cervic Effacement Cervic Station Type Weight in lbs Pre/Post Dialysis Refused BP Diastolic BP Location Tested BP Systolic BP Type Fetus Heart Rate Present Fetus Movement Comments Flowsheet Date 09/07/2024 Mott Score Blood Edema Fundus Height Fundus Units Glucose Ketones Leukocytes Nitrite Labor Signs Protein Cervic Dilation Cervic Effacement Cervic Station 33 cm none trace Negative trace Type Weight in lbs Pre/Post Dialysis Refused With clothes 227.107644979952 BP Diastolic BP Location Tested BP Systolic BP Type 74 R arm 112 sitting Fetus Heart Rate Present A 130 Fetus Movement A Yes Comments circ yes, Dr.Barr pulido. Flowsheet Date 09/21/2024 Mott Score Blood Edema Fundus Height Fundus Units Glucose Ketones Leukocytes Nitrite Labor Signs Protein Cervic Dilation Cervic Effacement Cervic Station 34 cm 1+ Type Weight in lbs Pre/Post Dialysis Refused Weight 229.661252343771 BP Diastolic BP Location Tested BP Systolic BP Type 80 120 Fetus Heart Rate Present A 130 Fetus Movement A Yes Comments RSV and TDAP rx given to pt. today. Flowsheet Date 10/08/2024 Mott Score Blood Edema Fundus Height Fundus Units Glucose Ketones Leukocytes Nitrite Labor Signs Protein Cervic Dilation Cervic Effacement Cervic Station 1+ 38 cm none none Negative trace Type Weight in lbs Pre/Post Dialysis Refused With clothes 228.704203718344 BP Diastolic BP Location Tested BP Systolic BP Type 82 L arm 128 sitting Fetus Heart Rate Present A 150 Fetus Movement A Yes Comments Baby ian Jay, pret ty sure about getting tubal. Flowsheet Date 10/15/2024 Mott Score Blood Edema Fundus Height Fundus Units Glucose Ketones Leukocytes Nitrite Labor Signs Protein Cervic Dilation Cervic Effacement Cervic Station 38 cm none trace trace 1cm 0% -4 Type Weight in lbs Pre/Post Dialysis Refused Weight 228.707520029881 BP Diastolic BP Location Tested BP Systolic BP Type 78 130 Fetus Heart Rate Present A 130 Fetus Movement A Yes Comments GBS negative. Baby ian Jay. Flowsheet Date 10/22/2024 Mott Score Blood Edema Fundus Height Fundus Units Glucose Ketones Leukocytes Nitrite Labor Signs Protein Cervic Dilation Cervic Effacement Cervic Station 1+ 39 cm none trace Negative trace 1cm 10% -4 Type Weight in lbs Pre/Post Dialysis Refused With clothes 231.980010146902 BP Diastolic BP Location Tested BP Systolic BP Type 72 126 sitting Fetus Heart Rate Present A 130 Fetus Movement Comments Flowsheet Date 10/29/2024 Mott Score Blood Edema Fundus Height Fundus Units Glucose Ketones Leukocytes Nitrite Labor Signs Protein Cervic Dilation Cervic Effacement Cervic Station 1+ Type Weight in lbs Pre/Post Dialysis Refused Weight [id number] BP Diastolic BP Location Tested BP Systolic BP Type 70 100 Fetus Heart Rate Present Fetus Movement Comments Menstrual History Last Menstrual Date Menses Monthly On Bcp Conception Prior Menses Frequency Hcg Plus Date Menarche Onset Age 0501/14/2024 false 07/20/202 4 Genetic Screening And Infection History Question Response Note Patient's Age Will Be 35 Years Or Older At Estim ated Date of Delivery false Thalassemia (Welsh, Sudanese, Mediterranean, Or Background): MCV < 80 false Neural Tube Defect (Meningomyelocele, Spina Bifi da, Or Anencephaly) false Congenital Heart Defect false Down Syndrome false Pete-Sachs (eg, Mosque, Cajun, Frisian-Cymraes) f alse Marleny Disease false Sickle Cell Disease Or Trait () false Hemophilia Or Other Blood Disorders false Muscular Dystrophy false Cystic Fibrosis false Niko's Chorea false Intellectual Disability/Autism false If Yes, Was Person Tested For Fragile X? false Other Inherited Genetic Or Chromosomal Disorder false Maternal Metabolic Disorder (eg, Type 1 Diabetes , PKU) false Patient Or Baby's Father Had A Child With Defects Not Listed Above false Recurrent Loss, Or A Stillbirth false Medications (including Suppl ements, Vitamins, Herbs, OTC Drugs), Illicit/Recreational Drugs, Alcohol false If Yes, Agent(s) And Strength/Dosage false Any Other Genetic History false Live With Someone With TB Or Exposed To TB false Patient Or Partner Has History Of Genital Herpes false Rash Or Viral Illness Since Last Menstrual Perio d false History Of STD, Gonorrhea, Chlamydia, HPV, Syphi lis false Other Infection History false History of HIV false History of Hepatitis false Prior GBS-infected child false Hemoglobinopathy Or Carrier false Other Structural Defect false Recent Travel History Outside of Country false Mental Retardation/Autism false Delivery Information Delivery Date Delivery Type Labor Anesthesia Weeks Gestation Incision Type Labor Labor Length Hrs Delivered By Post Complications Tubal Sterilization Discharge Date Comments Discharge Information Feeding Method Contraceptive Method Maternal HG B and HCT Levels Ob Episode Information Episode Created Date Number of Fetuses Patient Bloodtype Patient rh Status Prepregnancy Weight lbs Domestic Partner Domestic Partner Phone Father Name Field Service Poultry Technician Status 05/11/20 24 1 CLOSED Fetus Data First Name Last Name Admitted to NICU Weight (g) Sex Living Outcome Pediatric Complications Fetus ID Race Codes Race Delivery Type [id number] Rl Calculation Initial Rl Date Initial Exam Date Initial Exam Provider Initial Ultrasound Date Last Menstrual Period Date Ultra Sound Weeks Gestation 0 Eighteen To Twenty Week Rl Update Ultra Sound Date Fundal Height At Umbil Quickening Date Ultra Sound Latest Weeks Gestation Final Lr Confirmed By Final Rl Confirmed Date Final Rl Date Ultra Sound Latest Days Gestation 0 0 Menstrual History Last Menstrual Date Menses Monthly On Bcp Conception Prior Menses Frequency Hcg Plus Date Menarche Onset Age Delivery Information Delivery Date Delivery Type Labor Anesthesia Weeks Gestation Incision Type Labor Labor Length Hrs Delivered By Post Complications Tubal Sterilization Discharge Date Comments 7 40 Discharge Information Feeding Method Contraceptive Method Maternal HG B and HCT Levels
--- OUTSIDE RECORDS SUMMARY | 2024-11-04 10:43 | XMS_ITS | Clinical Summary ---
Author Organization [facility] Address [address] Attn: Epic Prelude ADT [place] [id number] Care Team Providers Care Wire Bound Box Machine Operator Name Role Phone Maria Ines Davis Primary Care Provider Allergies No known active allergies Medications No known medications Active Problems No known active problems Immunizations Immunization Administration Dates Next Due (ADACEL/BOOSTRIX)(10 YR UP) TDAP VACCINE, 0.5ML, IM 05/01/2023 Family History Medical History Relation Name Comments No Known Problems Brother Heart Disease Father Cancer Maternal Aunt No Known Problems Mother No Known Problems Sister 1 No Known Problems Sister 2 No Known Problems Sister 3 Relation Name Status Comments Brother Alive Father Alive Maternal Aunt Mother Alive Sister 1 Alive Sister 2 Alive Sister 3 Alive Social History Tobacco Use Types Packs/Day Years Used Date Smoking Tobacco: Former Cigarettes 0.3 6 Smokeless Tobacco: Never Alcohol Use Standard Drinks/Week Comments Yes 0 (1 standard drink = 0.6 oz pur e alcohol) Comments No Sex and Gender Information Value Date Recorded Sex Assigned at Not on file Legal Sex Female 4:26 AM EVALUATION ADVISOR Gender Identity Not on file Sexual Orientation Not on file Last Filed Vital Signs Vital Sign Reading Time Taken Comments Blood Pressure 114/66 05/01/2023 8:21 AM CDT Pulse 108 05/01/2023 8:21 AM CDT Temperature 36.2 ??C (97.2 ??F) 05/01/2023 8:21 AM CD T Respiratory Rate 18 05/01/2023 8:21 AM CDT Oxygen Saturation 99% 05/01/2023 8:21 AM CDT Inhaled Oxygen Concentration - - Weight 95 kg (209 lb 6.4 oz) 09/17/2022 11:01 AM EVALUATION ADVISOR Height 167.6 cm (5' 6 ) 09/17/2022 11:01 AM EVALUATION ADVISOR Body Mass Index 33.8 09/17/2022 11:01 AM EVALUATION ADVISOR Plan of Treatment Health Maintenance Due Date Last Done Comments HEPATITIS B VACCINES (1 of 3 - 19+ 3-dose series) 2013 Preventative Visit-Managed Medicaid 2013 CERVICAL CANCER SCREENING 01/18/2024 INFLUENZA VACCINE (#1) 2024 DTAP/TDAP/TD VACCINES (2 - T d or Tdap) 05/01/2033 05/01/2023 HPV VACCINES Aged Out No longer eligi ble based on patient's age to complete this topic PNEUMOCOCCAL VACCINE 0-49 YEARS Aged Out No longer eligible based on patient's age to complete this topic Insurance [facility] [employer] [employer] MED[employer] Care Teams Wire Bound Box Machine Operator Relationship Specialty Start Date End Date Maria Ines Davis DO [address] [place] [address] PCP - General Family Practice 12/20/22
[2024-11-04] MEDS: oxytocin 30 UNIT/500 ML BAG IV (10:57)
[2024-11-04] MEDS: dextrose 5%-lactated ringers 1,000 ML 125 ML IV ×2 (10:58→18:54)
[2024-11-04 12:42] LABS: Basophils % 0.2 %; Eosinophils % 0.5 %; Hematocrit 33.7 % (36-47); Lymphocytes # 1.2 10^3/uL (0.8-4.8); Lymphocytes % 13.4 %; Mean Corpuscular HGB Conc 34.4 g/dL (30-55); Mean Corpuscular Hemoglobin 30.2 pg (27-33); Mean Corpuscular Volume 87.8 fl (85-98); Mean Platelet Volume 10.8 fL (7.4-10.4); Monocytes # 0.4 10^3/uL (0.2-0.9); Monocytes % 5.1 %; Neutrophils # 6.86 10^3/uL (1.8-7.7); Neutrophils % 80.1 %; Nucleated Red Blood Cells % 0 %; Platelet Count 170 10^3/cmm (157-399); Red Blood Count 3.84 10^6/uL (3.85-5.65); Red Cell Distribution Width 12.9 % (12.1-15.1); White Blood Count 8.57 10^3/uL (3.29-11.43)
[2024-11-04] MEDS: ROPivacaine syringe 100 MG/50 ML SYRINGE 13 MG EPIDURAL ×2 (14:31→18:54)
[2024-11-04] MEDS: lactated ringers 1,000 ML 999 ML IV ×2 (14:31→16:35)
--- NOTE | 2024-11-04 15:00 | P.ANESASSM_ITS ---
Pre-Anesthetic Assessment Height/Weight: Height 1.68 m Weight 107.048 kg Temp Pulse BP Pulse Ox O2 Del Method 97.2 F L 90 143/84 100 Room Air 11/04/24 11:08 11/04/24 15:21 11/04/24 15:16 11/04/24 15:21 11/04/24 11:00 Preop Diagnosis: labor pain Familial anesthetic complications: none Was Beta Roro taken within 24 hours: N/A Was Clonidine taken within 24 hours: N/A Last Intake: 10:30 Social No alcohol and No tobacco Exam alert and oriented x 3 Airway Submandibular: within normal limits Cervical ROM: within normal limits Mallampati: Class II Dentition: full History/ROS No significant complaints Anesthetic Plan ASA status: 2 Anesthesia: Anesthesia Evaluation and Regional (specify below) Medications/Allergies Home Medications ?Medication ?Instructions ?Recorded ?Confirmed ?Last Taken ?Type doxylamine succinate 25 mg tablet 25 mg PO TID PRN ezequiel sea and 02/23/22 Unknown Rx (Sleep Aid (doxylamine)) vomiting #20 tabs pyridoxine (vitamin B6) 25 mg 25 mg PO TID PRN nausea and 02/23/22 Unknown Rx tablet vomiting #20 tabs Allergies Allergy/AdvReac Type Severity Reaction Status Date / Time No Known Allergies Allergy Verified 02/22/22 20:57 Current Medications Generic Name Dose Route Start Last Admin Trade Name Freq PRN Reason Stop Dose Admin Dextrose/Lactated Ringer's 1,000 mls @ 125 mls/hr 11/04/24 11:00 11/04/24 10:58 Dextrose 5%-Lactated Ringers IV 125 mls/hr .Q8H BUD Administration Oxytocin 30 unit in 500 mls @ 1 mls/hr 11/04/24 11:00 11/04/24 13:00 Pitocin IV 18 milliunit/min .Q24H BUD 18 mls/hr Titration Protocol 1 MILLIUNIT/MIN Lactated Ringer's 1,000 mls @ 999 mls/hr 11/04/24 14:02 11/04/24 14:31 Lactated Ringers IV 999 mls/hr .Q1H1M PRN Administration See label comments Ropivacaine 100 mg in 50 mls @ 10 mls/hr 11/04/24 14:15 11/04/24 14:31 Naropin Syringe EPIDURAL 13 mls/hr .Q5H BUD Administration PFSH Anesthesia Medical History No significant past medical history Surgical History No significant past surgical history Social History Smoking and tobacco/nicotine status: never used tobacco/nicotine Female Reproductive History : 6 Data Anesthesia 11/04/24 12:35 Short CBC 11/04/24 11/04/24 Range/Units 11:00 12:35 WBC Cancelled 8.57 Hgb Cancelled 11.60 Hct Cancelled 33.7 L MCV Cancelled 87.8 Plt Count Cancelled 170 Neut % (Auto) Cancelled 80.1 Neut # (Auto) Cancelled 6.86 Blood Bank 11/04/24 11:00 Blood Type B Positive Rho(D) Type Rh positive Antibody Screen Negative Cardiac Studies: 2 No Data to Display
--- NOTE | 2024-11-04 15:21 | ANES.PROC ---
Anesthesia Procedures Procedure/Date: 11/04/24 Epidural: Time Out Performed: Yes Consents Signed: Procedure Consent Consent: from patient, risks and benefits reviewed and patient agrees to proceed Lumbar Level: L3-L4 Epidural position: sitting Epidural procedure: sterile prep of area, 1% lidocaine to numb the area, 18 g needle, negative for paresthesia passed, neg for paresthesia, test dose given, 1.5% xylocaine 1:200k epi, placed PCEA, no systemic response, sterile dressing applied, L.U.D. no apparent complications and 0.2% Ropiavacaine @ mls/hr (13) Additional Comments: ANDREI at 6.5, taped at 13 at skin, negative heme/CSF upon aspiration. tolerated well.
[2024-11-04] MEDS: ondansetron 2 mg/ML SDV 2 mL 4 MG IVP (16:34)
[2024-11-04] MEDS: oxytocin 30 UNIT/500 ML BAG 600 UNIT IV (20:18)
[2024-11-04] MEDS: miSOPROStol 200 mcg Tablet 800 MCG PR (20:20)
--- NOTE | 2024-11-04 20:38 | PM.OPHPUD ---
Labor & Delivery H&P Update Date of Procedure: November 04, 2024 Date H&P Performed: 08/02/22 Admission Diagnosis: IUP at 40 weeks 1 day gestation Preop diagnosis: labor pain Planned procedure: Induction of labor and delivery
--- NOTE | 2024-11-04 20:38 | PM.DELIVERY ---
Delivery Note: Date of delivery: November 04, 2024 Procedure: Normal spontaneous vaginal delivery Delivering Physician: Crystal Gandhi MD Estimated blood loss (mL): 350 Pre-Delivery Course: The patient had routine care at [facility]. labs: Blood type B+ antibody negative, hepatitis B nonreactive, hepatitis C nonreactive, HIV nonreactive, rubella immune, GC chlamydia negative, RPR nonreactive, UDS negative, Q low risk, she passed her glucose tolerance test, she was GBS negative. Delivery: This is a 29-year-old G8, P5 at 40 weeks 1 day gestation who presented for induction. Her cervix was favorable and she was started on Pitocin. She received an epidural for pain management. She underwent artificial rupture of membranes with clear fluid. Approximately 3 hours later she had a normal spontaneous vaginal delivery of a viable male infant weight 3720 g, 8 pounds 3 ounces, Apgars 8 and 9 over an intact perineum. The infant was suctioned at delivery and placed on the mother's chest. The cord was clamped and cut. The placenta was delivered grossly intact and normal to inspection. There were no lacerations. Mother had a steady stream of bleeding after delivery and was given 600 mcg of Cytotec rectally. Mother and infant were doing well after delivery A&P PDMP PDMP Reviewed: Not Reviewed Coding Level of Care Code Acute Code for Chg Fwd
[2024-11-05] VITALS (16 sets, daily range): BP systolic 91–139; BP diastolic 44–80; PULSE 82–112; RESP 15–16; TEMP 36.2–36.9; O2SAT 97–100
[2024-11-05] MEDS: acetaminophen 325 mg Tablet 650 MG PO (06:41)
[2024-11-05] MEDS: benzocaine-menthol 78 gm Canister 1 SPRAY TOPICAL (06:42)
[2024-11-05] MEDS: lanolin oint 7 gm 1 APPLIC TOPICAL (06:43)
[2024-11-05] MEDS: sodium chloride 0.9% 1,000 ML 999 ML IV (07:00)
[2024-11-05] MEDS: ceFAZolin 2,000 mg SDV 2000 MG IVP (07:47)
[2024-11-05] MEDS: metoclopramide 5 mg/mL SDV 2 mL 10 MG IVP (07:47)
[2024-11-05] MEDS: citric acid-sodium citrate 30 mL UDC PO (07:47)
[2024-11-05] MEDS: famotidine 20 mg/2 mL INJ IVP (07:47)
--- NOTE | 2024-11-05 08:00 | P.HP_ITS ---
Providers/Chief Complaint 2 Admitting Physician: Crystal Gandhi MD Primary Care Provider: Crystal Gandhi MD Chief Complaint: IOL History of Present Illness Key Suarez is a 29 year old female G8 now P6 who was admitted for induction of labor and delivery. She had a normal spontaneous vaginal delivery of a viable male . She had previously expressed desire to undergo permanent surgical sterilization with a bilateral tubal ligation. After her delivery she was still wishing to proceed with the surgery. Review of Systems 2 General: Reports: Other (Average vaginal bleeding, no fevers chills, no abdominal pain, expected [place]) Medications/Allergies Home Medications ?Medication ?Instructions ?Recorded ?Confirmed ?Last Taken ?Type doxylamine succinate 25 mg tablet 25 mg PO TID PRN ezequiel sea and 02/23/22 Unknown Rx (Sleep Aid (doxylamine)) vomiting #20 tabs pyridoxine (vitamin B6) 25 mg 25 mg PO TID PRN nausea and 02/23/22 Unknown Rx tablet vomiting #20 tabs Allergies Allergy/AdvReac Type Severity Reaction Status Date / Time No Known Allergies Allergy Verified 02/22/22 20:57 PFSH Acute 2 PFSH: Medical History No significant past medical history Surgical History No significant past surgical history Social History Smoking and tobacco/nicotine status: never used tobacco/nicotine Female Reproductive History: : 6 Vitals/I&O/Wt Last Vital Signs Temp 98.2 F 11/05/24 06:57 Pulse 91 11/05/24 06:57 BP 139/76 11/05/24 06:57 Pulse Ox 100 11/04/24 15:26 O2 Del Method Room Air 11/04/24 11:00 11/04/24 11/05/24 11/05/24 22:59 06:59 14:59 Intake Total 1524.517 / 1542.617 Output Total 200 / 200 Balance 1324.517 / 1342.617 Weight last 48 hrs Weight 107.048 kg Physical Exam 2 Narrative: Alert and oriented, sitting up in bed, heart regular rate and rhythm, lungs clear to auscultation bilaterally, abdomen is soft and nontender, fundus is firm, extremities have 1+ edema but no calf tenderness Urinary Catheter Management: Moreno: Cath Placed During This Visit: yes, but has since been removed by the nurse Reason for Continuing Indwelling Catheter: Required Immobilization for Trauma or Surgery or Anesthesia Urinary Catheter Date of Insertion: 11/04/24 Urinary Catheter Time of Insertion: 15:30 Date Urinary Catheter Removed: 11/04/24 Time Urinary Catheter Discontinued: 20:00 Data 11/04/24 12:35 A&P Assessment and plan (1) Encounter for consultation for female sterilization: Risk benefits and alternatives of bilateral tubal ligation have previously been discussed with the patient in detail. Medicaid form has been signed. She is scheduled to go to the OR this morning PDMP PDMP Reviewed: Not Reviewed Attestations 2 Medical Necessity Statement*: Routine surgery and postoperative care Coding Level of Care Code Acute Code for Chg Fwd Diagnoses Encounter for consultation for female sterilization Z30.09
--- NOTE | 2024-11-05 09:17 | P.ANESASSM_ITS ---
Pre-Anesthetic Assessment Height/Weight: Height 1.68 m Weight 107.048 kg Temp Pulse BP Pulse Ox O2 Del Method 98.2 F 91 139/76 100 Room Air 11/05/24 06:57 11/05/24 06:57 11/05/24 06:57 11/04/24 15:26 11/04/24 11:00 Preop Diagnosis: labor pain Operation Date: 11/05/24 08:10 Proposed Procedures p Post Bilateral Tubal Ligation(Not Applicable) - Crystal Gandhi MD Familial anesthetic complications: none Was Beta Roro taken within 24 hours: N/A Was Clonidine taken within 24 hours: N/A Last Intake: 22:00 Social No alcohol and No tobacco Exam alert, oriented x 3, clear to auscultation bilaterally and regular rate & rhythm Airway Submandibular: within normal limits Mallampati: Class II Comments: Comments: Teeth intact History/ROS No significant history except as noted and No significant complaints Pulmonary None reported CV/HEM None reported None reported Hepatic None reported GI None reported Metabolic None reported Musc/skel None reported Neuropsych None reported Anesthetic Plan ASA status: 2 Anesthesia: General Risk of > 500 ml blood loss (7ml/kg in children): No Other Pertinent Information epidural catheter removed, tip intact. site clean and dry no complications. Medications/Allergies Home Medications ?Medication ?Instructions ?Recorded ?Confirmed ?Last Taken ?Type doxylamine succinate 25 mg tablet 25 mg PO TID PRN ezequiel sea and 02/23/22 Unknown Rx (Sleep Aid (doxylamine)) vomiting #20 tabs pyridoxine (vitamin B6) 25 mg 25 mg PO TID PRN nausea and 02/23/22 Unknown Rx tablet vomiting #20 tabs Allergies Allergy/AdvReac Type Severity Reaction Status Date / Time No Known Allergies Allergy Verified 02/22/22 20:57 Current Medications Generic Name Dose Route Start Last Admin Trade Name Freq PRN Reason Stop Dose Admin Acetaminophen 650 mg 11/04/24 21:40 11/05/24 06:41 Acetaminophen 325 Mg Tablet PO 650 mg Q6H PRN Administration mild pain for temp >100.4. Benzocaine 1 spray 11/04/24 21:40 11/05/24 06:42 Benzocaine-Menthol 78 Gm Canister TOPICAL 1 spray PRN PRN Administration PAIN Lanolin 1 applic 11/04/24 21:40 11/05/24 06:43 Lanolin Oint 7 Gm TOPICAL 1 applic PRN PRN Administration DRYNESS PFSH Anesthesia Medical History No significant past medical history Surgical History No significant past surgical history Social History Smoking and tobacco/nicotine status: never used tobacco/nicotine Female Reproductive History : 6 Data Anesthesia 11/04/24 12:35 Short CBC 11/04/24 11/04/24 Range/Units 11:00 12:35 WBC Cancelled 8.57 Hgb Cancelled 11.60 Hct Cancelled 33.7 L MCV Cancelled 87.8 Plt Count Cancelled 170 Neut % (Auto) Cancelled 80.1 Neut # (Auto) Cancelled 6.86 Blood Bank 11/04/24 11:00 Blood Type B Positive Rho(D) Type Rh positive Antibody Screen Negative Cardiac Studies: 2 No Data to Display
--- NOTE | 2024-11-05 09:19 | PM.PACU ---
PACU note Narrative: Pt. lying awake, comfortable, denies pain or nausea. Exam: awake and vital signs stable Disposition: back to floor
--- NOTE | 2024-11-05 09:20 | PM.OP ---
Operative Report Date of procedure: November 05, 2024 Pre-op diagnosis: Desired permanent surgical sterilization Procedure done: bilateral tubal ligation Surgeon: Crystal Gandhi MD Estimated blood loss (mL): 3 IV fluids (mL): 600 Procedure: After informed consent the patient was taken to the OR where general anesthesia was administered. She was prepped and draped in normal sterile fashion in dorsal supine position. A curvilinear infraumbilical incision was made with a 15 blade then carried through to the underlying layer of fascia bluntly using a hemostat. The fascia was grasped with Allis clamps and entered sharply using the Metzenbaums. The peritoneum was then entered bluntly. The left fallopian tube was grasped with a Debby and brought into the operative field. Fimbria were identified. A distal portion of the tube was ligated and excised. Of note one of the fallopian tube veins was thrombosed. The tube appeared healthy. The cut portions of the tube were coagulated using the Bovie. Segment of the tube was sent to pathology. Tubal ostia were identified. After hemostasis was obtained the cut segments of the tube were then returned to the abdomen. The right fallopian tube was then grasped and brought into the operative field with a Marianna. Fimbria were identified. A distal portion of the tube was ligated and excised. Tubal ostia were visualized. Cut portions of the tube were coagulated using the Bovie and then returned to the abdomen. The fascia was then grasped with an Allis clamp and reapproximated using 0 Vicryl in a running fashion. The skin was then reapproximated using 4-0 Vicryl in a running fashion. 10 mL of 1% lidocaine was injected circumferentially to perform a block. Steri-Strips and a pressure bandage were applied. Patient was awoken and went to recovery in good condition. Sponge instrument and needle counts were correct.
--- NOTE | 2024-11-05 09:23 | P.DS_ITS ---
Discharge Providers Date of Admission: 11/04/24 10:30 Date of Discharge: November 05, 2024 Attending Provider at Admission: Crystal Gandhi MD Attending Provider at Discharge: Crystal Gandhi MD Primary Care Provider: Crystal Gandhi MD Diagnoses at Discharge Discharge Diagnosis (1) Encounter for consultation for female sterilization: Status: Acute Reason for Visit Reason for Visit: IOL Hospital Course Hospital Course This is a 29-year-old G8 now P6 who was admitted for induction. She had a normal spontaneous vaginal delivery of a viable male . On day #1 she underwent a bilateral tubal ligation. The patient was ambulating, tolerating a regular diet, had good pain control and was comfortable with discharge home. Physical Exam Narrative: Alert and oriented, sitting in bedside chair, abdomen is soft and nontender, fundus is firm, extremities have trace edema but no calf tenderness Urinary Catheter Management: Moreno: Cath Placed During This Visit: yes, but has since been removed by the nurse Reason for Continuing Indwelling Catheter: Required Immobilization for Trauma or Surgery or Anesthesia Urinary Catheter Date of Insertion: 11/04/24 Urinary Catheter Time of Insertion: 15:30 Date Urinary Catheter Removed: 11/04/24 Time Urinary Catheter Discontinued: 20:00 Discharge Data Studies Completed and Pending Pending at discharge Category Date Time Status Hemagram Timed Lab 11/05/24 08:42 Uncollected Laboratory Results WBC 8.57 10^3/uL (3.29-11.43) 11/04/24 12:35 Corrected WBC Cancelled 11/04/24 11:00 RBC 3.84 10^6/uL (3.85-5.65) L 11/04/24 12:35 Hgb 11.60 g/dL (11.27-16.99) 11/04/24 12:35 Hct 33.7 % (36-47) L 11/04/24 12:35 MCV 87.8 fl (85-98) 11/04/24 12:35 MCH 30.2 pg (27-33) 11/04/24 12:35 MCHC 34.4 g/dL (30-55) 11/04/24 12:35 RDW 12.9 % (12.1-15.1) 11/04/24 12:35 Plt Count 170 10^3/cmm (157-399) 11/04/24 12:35 MPV 10.8 fL (7.4-10.4) H 11/04/24 12:35 Gran % Cancelled 11/04/24 11:00 Neut % (Auto) 80.1 % 11/04/24 12:35 Lymph % (Auto) 13.4 % 11/04/24 12:35 [place] % (Auto) 5.1 % 11/04/24 12:35 Eos % (Auto) 0.5 % 11/04/24 12:35 Baso % (Auto) 0.2 % 11/04/24 12:35 Neut # (Auto) 6.86 10^3/uL (1.8-7.7) 11/04/24 12:35 Lymph # (Auto) 1.2 10^3/uL (0.8-4.8) 11/04/24 12:35 [place] # (Auto) 0.4 10^3/uL (0.2-0.9) 11/04/24 12:35 Eos # (Auto) 0.0 10^3/uL (0.0-0.8) 11/04/24 12:35 Baso # (Auto) 0.0 10^3/uL (0.0-0.1) 11/04/24 12:35 Absolute Gran (auto) Cancelled 11/04/24 11:00 Nucleated RBC % (auto) 0 % 11/04/24 12:35 Nucleated RBCs # 0.0 /100WBC 11/04/24 12:35 Blood Type B Positive 11/04/24 11:00 Rho(D) Type Rh positive 11/04/24 11:00 Antibody Screen Negative 11/04/24 11:00 Vitals Last Vital Signs Temp 98.2 F 11/05/24 06:57 Pulse 91 11/05/24 06:57 BP 139/76 11/05/24 06:57 Pulse Ox 100 11/04/24 15:26 O2 Del Method Room Air 11/04/24 11:00 Discharge Plan Discharge Patient Disposition: Home Condition: Stable Prescriptions: New ibuprofen 800 mg Tablet 800 mg PO TID PRN (Reason: Abdominal Discomfort) Qty: 30 0RF hydrocodone-acetaminophen 5-325 mg Tablet 1 - 2 tab PO Q6H PRN (Reason: Moderate To Severe Pain) Qty: 8 0RF Discontinued pyridoxine (vitamin B6) 25 mg tablet 25 mg PO TID PRN (Reason: nausea and vomiting) Qty: 20 0RF Sleep Aid (doxylamine) 25 mg tablet 25 mg PO TID PRN (Reason: nausea and vomiting) Qty: 20 0RF Discharge Orders: Discharge Order (Routine); Ordered 11/05/24 Ordered By: Crystal Gandhi Referrals: Crystal Gandhi MD [Primary Care Provider] - 11/09/24 Discharge Diet: Usual diet Discharge Activity: Limit activity as instructed Patient Instructions: Opioid Safety Activity Restrictions/Additional Instructions: No lifting greater than 10 pounds for 2 weeks. Nothing per vagina for 6 weeks. Discharge Attestations Time Spent in Discharge Care*: less than 30 min Quality Metrics Clinical Quality Measures [ No reported AMI, CVA or VTE this stay] Coding Level of Care Code Acute Code for Chg Fwd Diagnoses Encounter for consultation for female sterilization Z30.09
[2024-11-05] MEDS: ibuprofen 800 mg tablet PO ×3 (10:21→22:00)
[2024-11-05] MEDS: PRENATAL VIT NO.130/IRON/FOLIC 1 EACH TABLET PO (10:21)
[2024-11-05] MEDS: HYDROcodone-acetaminophen 5-325 mg Tablet PO (10:21)
[2024-11-05] MEDS: docusate sodium 100 mg Capsule PO (10:22)
[2024-11-05] MEDS: BUPivacaine 0.5% INJ 10 mL INJECTION (10:47)
[2024-11-05 10:51] LABS: Hematocrit 32.1 % (36-47); Mean Corpuscular HGB Conc 33.6 g/dL (30-55); Mean Corpuscular Hemoglobin 30.3 pg (27-33); Mean Corpuscular Volume 90.2 fl (85-98); Platelet Count 154 10^3/cmm (157-399); Red Blood Count 3.56 10^6/uL (3.85-5.65); Red Cell Distribution Width 12.9 % (12.1-15.1); White Blood Count 8.34 10^3/uL (3.29-11.43)
--- NOTE | 2024-11-05 11:00 | ANE.PACU2 ---
Inpatient post-anesthesia follow up: Airway intact: Yes Vital signs: Temperature 98.2 F Pulse Rate 88 Respiratory Rate 16 Blood Pressure 121/72 Pulse Oximetry 99 Oxygen Delivery Me thod Room Air Oxygen Flow Rate Fraction of Inspir ed Oxygen Hydration adequate: Yes Nausea and vomiting: No Pain level: 1 Mental status: Baseline Epidural Start/End: Epidural Start Date: 11/04/24 Epidural Start Time: 15:00 Epidural End Date: 11/05/24 Epidural End Time: 09:30
== END 2024-11-05 22:38 | disposition home or self-care (01) | DRG 798 ==
PROVIDERS: Admitting Provider Family Medicine; PCP Family Medicine; Visit Provider Family Medicine
PROC: 0UB70ZZ Excision of Bilateral Fallopian Tubes, Open Approach (ICD-10-PCS; CPT 58605; principal; 2024-11-05 08:00)
DX: O80 Encounter for full-term uncomplicated delivery (principal); Z37.0 Single live birth; Z3A.40 40 weeks gestation of pregnancy; Z30.2 Encounter for sterilization
CPT/HCPCS: 36415; 51702; 59025; 59409; 85025; 85027; 86850; 86900; 88302; 99211; J0690; J2371; J2405; J2590; J2704; J2765; J2795; J3010; J3490; J7030; J7120; J7121; J9999

== ENCOUNTER 2025-02-15 15:36 | Emergency (ER) | payer MEDICAID, SELFPAY ==
[2025-02-15 15:41] VITALS: BP 127/81; PULSE 108; RESP 17; TEMP 36.5; O2SAT 100; BMI 33.3
--- NOTE | 2025-02-15 15:58 | W.ED.BACK ---
Documented by User: LALI Sotelo 02/15/25 16:38 HPI - Back Pain/Injury General: Chief Complaint: Back Pain/Injury Stated Complaint: tailbone pain Time Seen by Provider: 02/15/25 15:54 Source: patient Mode of arrival: ambulatory Limitations: no limitations History of Present Illness: Patient is a 30-year-old female who presents to the ED with a chief complaint of coccyx pain. She states she developed this pain during her third trimester of and just related it to that. She states that since giving 3 months ago the pain has not improved at all and has actually worsened. States she can barely sit and is using a donut pillow. Pain seems to radiate into her right buttock. She denies back pain, tingling/numbness down her legs, color changes in lower extremities, or any abnormal drainage in the perineal area. She is still able to ambulate without difficulty. MD elicited complaint: back pain (Coccyx pain) Onset (ago): month(s) (4 months ago) Timing: progressively worsening Severity: moderate Similar Symptoms Previously: No Quality: dull and aching Location: sacrum (/coccyx) Radiation: buttocks (R buttocks) Exacerbating factors: sitting upright Relieving factors: walking Associated symptoms: Reports no associated symptoms; Deny abdominal pain, chills, difficulty walking, dysuria, fatigue, fever(s) or hematuria Treatments prior to arrival: NSAIDS and acetaminophen Work related injury: No Related Data Previous Rx's ?Medication ?Instructions ?Recorded hydrocodone 5 mg-acetaminophen 325 1 - 2 tab PO Q6H PRN Moderate To 11/05/24 mg tablet Severe Pain #8 tabs ibuprofen 800 mg tablet 800 mg PO TID PRN Abdominal 11/05/24 Discomfort #30 tabs metaxalone 800 mg tablet 800 mg PO TID PRN muscle pain #30 02/15/25 tabs methylprednisolone 4 mg tablets in See Rx Instructions PO .COMPLEX 02/15/25 a dose pack (Medrol (Costa)) #21 ea Allergies Allergy/AdvReac Type Severity Reaction Status Date / Time No Known Allergies Allergy Verified 02/15/25 15:45 Review of Systems Const: Denies: fever(s), chills, body aches, fatigue or malaise Card: Denies: chest pain Resp: Denies: dyspnea GI: Denies: abdominal pain : Denies: flank pain, dysuria, hematuria, vaginal bleeding or pelvic pain Musc: Reports: back pain (coccyx pain); Denies: extremity pain, extremity swelling, joint pain, joint redness, joint warmth, limited range of motion or muscle weakness Skin/Breast: Denies: rash, pruritus, erythema or skin swelling Neuro: Denies: numbness in extremities, weakness in extremities, sensory changes, difficulty walking or dizziness PFSH ED PFSH: Medical History No significant past medical history Surgical History No significant past surgical history Social History Smoking and tobacco/nicotine status: never used tobacco/nicotine Physical Exam Const: COMMON NORMALS: no acute distress, average body habitus, patient oriented x3, no limitations, alert and well nourished GENERAL APPEARANCE: cooperative Back/Pelvis: THORACIC SPINE/UPPER BACK: No thoracic spinal tenderness LUMBAR SPINE/LOWER BACK: No lumbar spinal tenderness PELVIS: Yes buttocks normal SACROILIAC JOINTS: Yes SI joint(s) abnormal SI joint details: tender to palpation (R) SACRUM: tenderness COCCYX: Coccyx tenderness present Extremity: COMMON NORMALS: normal to inspection GENERAL: Yes normal exam except as noted Neuro: COMMON NORMALS: patient oriented x3, moves all extremities, no focal motor deficits, no sensory deficits noted and gait normal SENSORIUM/ORIENTATION: Yes alert Skin: COMMON NORMALS: no rashes or lesions noted GENERAL SKIN EXAM: no rashes or lesions noted Course Vital Signs: Vital signs: Vital Signs Temperature 97.7 F 02/15/25 15:41 Pulse Rate 108 H 02/15/25 15:41 Respiratory Rate 17 02/15/25 15:41 Blood Pressure 127/81 02/15/25 15:41 Pulse Oximetry 100 02/15/25 15:41 Oxygen Delivery Me thod Room Air 02/15/25 15:41 MDM - Back Pain/Injury Labs Radiology Impressions Sacrum and Coccyx X-Ray 02/15/25 16:16 IMPRESSION: Grade 1 anterolisthesis of L5 on S1. Laboratory Results HCG, Qual Negative (Negative) 02/15/25 16:37 Discharge Plan Discharge Patient Disposition: Home Clinical Impression: Anterolisthesis of lumbosacral spine Condition: Stable Prescriptions: New methylprednisolone [Medrol (Costa)] 4 mg tablets,dose pack See Rx Instructions .ROUTE .COMPLEX Qty: 21 0RF Rx Instructions: orally per package directions metaxalone 800 mg tablet 800 mg PO TID PRN (Reason: muscle pain) Qty: 30 0RF No Action ibuprofen 800 mg Tablet 800 mg PO TID PRN (Reason: Abdominal Discomfort) Qty: 30 0RF hydrocodone-acetaminophen 5-325 mg Tablet 1 - 2 tab PO Q6H PRN (Reason: Moderate To Severe Pain) Qty: 8 0RF Discharge Orders: Discharge ED (Routine); Ordered 02/15/25 Ordered By: Angela Roussaeu Referrals: Crystal Gandhi MD [Primary Care Provider, Family Practice] Discharge Diet: Usual diet Discharge Activity: Resume usual activity Patient Instructions: Sacroiliitis (ED) Activity Restrictions/Additional Instructions: Continue your donut pillow Utilize Medrol Dosepak as prescribed Metaxalone is your muscle relaxer we discussed regarding breast-feeding and caution for sedation. Return to ED for further worsening issues as described in your instructions. If you have fever, worsening pain. Recommended probiotic as we discussed to loosen stools. You will need to follow-up with your primary care physician in order to be referred to anesthesia or neurology. Print Language: Polish Coding Level of Care Code ED Motion And Time Study Teacher for Chg Fwd Documented by User: LALI Urena 02/15/25 18:51 HPI - Back Pain/Injury General: Chief Complaint: Back Pain/Injury Stated Complaint: tailbone pain Time Seen by Provider: 02/15/25 15:54 Related Data Previous Rx's ?Medication ?Instructions ?Recorded hydrocodone 5 mg-acetaminophen 325 1 - 2 tab PO Q6H PRN Moderate To 11/05/24 mg tablet Severe Pain #8 tabs ibuprofen 800 mg tablet 800 mg PO TID PRN Abdominal 11/05/24 Discomfort #30 tabs metaxalone 800 mg tablet 800 mg PO TID PRN muscle pain #30 02/15/25 tabs methylprednisolone 4 mg tablets in See Rx Instructions PO .COMPLEX 02/15/25 a dose pack (Medrol (C[place])) #21 ea Allergies Allergy/AdvReac Type Severity Reaction Status Date / Time No Known Allergies Allergy Verified 02/15/25 15:45 PFSH ED PFSH: Medical History No significant past medical history Surgical History No significant past surgical history Social History Smoking and tobacco/nicotine status: never used tobacco/nicotine Physical Exam Chest: COMMONS NORMALS: normal inspection of the chest CHEST: Yes Symmetrical chest wall rise Resp: COMMON NORMALS: normal respiratory effort and clear to auscultation bilaterally AUSCULTATION: clear to auscultation bilaterally Cardio: COMMON NORMALS: regular rate and regular rhythm RATE: regular rate RHYTHM: regular rhythm : COMMON NORMALS: Yes no CVA tenderness BLADDER/KIDNEY EXAM: Yes no CVA tenderness Back/Pelvis: COMMON NORMALS: no CVA tenderness Course Vital Signs: Vital signs: Vital Signs Temperature 97.7 F 02/15/25 15:41 Pulse Rate 108 H 02/15/25 15:41 Respiratory Rate 17 02/15/25 15:41 Blood Pressure 127/81 02/15/25 15:41 Pulse Oximetry 100 02/15/25 15:41 Oxygen Delivery Me thod Room Air 02/15/25 15:41 MDM - Back Pain/Injury Medical Decision Making Patient's pain is consistent with anterolisthesis grade 1 L5/S1 which is patient's main complaint. I have asked patient to follow-up with primary care physician, possible referral for injections with anesthesia/neuro. As well, Medrol Dosepak to reduce inflammation has been sent to the pharmacy. I discussed risk and benefit with breast-feeding regarding muscle relaxer such as Skelaxin, and patient states understanding to utilize sparingly. I have also asked her to be placed on probiotic since there is stool burden and gas in her rectum that is right next to where her complaint is. She states understanding and will follow-up on these issues. Labs Radiology Impressions Sacrum and Coccyx X-Ray 02/15/25 16:16 IMPRESSION: Grade 1 anterolisthesis of L5 on S1. Laboratory Results HCG, Qual Negative (Negative) 02/15/25 16:37 All radiology interpretation(s) finalized by discharge ED provider radiology interpretation(s): Grade 1 Anterolisthesis L5/S1 Discharge Plan Discharge Patient Disposition: Home Clinical Impression: Anterolisthesis of lumbosacral spine Condition: Stable Prescriptions: New methylprednisolone [Medrol (C[place])] 4 mg tablets,dose pack See Rx Instructions .ROUTE .COMPLEX Qty: 21 0RF Rx Instructions: orally per package directions metaxalone 800 mg tablet 800 mg PO TID PRN (Reason: muscle pain) Qty: 30 0RF No Action ibuprofen 800 mg Tablet 800 mg PO TID PRN (Reason: Abdominal Discomfort) Qty: 30 0RF hydrocodone-acetaminophen 5-325 mg Tablet 1 - 2 tab PO Q6H PRN (Reason: Moderate To Severe Pain) Qty: 8 0RF Discharge Orders: Discharge ED (Routine); Ordered 02/15/25 Ordered By: Angela Rousseau Referrals: Crystal Gandhi MD [Primary Care Provider, Family Practice] Discharge Diet: Usual diet Discharge Activity: Resume usual activity Patient Instructions: Sacroiliitis (ED) Activity Restrictions/Additional Instructions: Continue your donut pillow Utilize Medrol Dosepak as prescribed Metaxalone is your muscle relaxer we discussed regarding breast-feeding and caution for sedation. Return to ED for further worsening issues as described in your instructions. If you have fever, worsening pain. Recommended probiotic as we discussed to loosen stools. You will need to follow-up with your primary care physician in order to be referred to anesthesia or neurology. Print Language: Polish Coding Level of Care Code ED Motion And Time Study Teacher for Leah Loja
--- NOTE | 2025-02-15 16:16 | XRR_ITS ---
PROCEDURE INFORMATION: Exam: XR Sacrum and Coccyx, 2 or More Views Exam date and time: 02/15/2025 5:30 PM Age: 30 years old Clinical indication: Pain in coccyx area; Additional info: Coccyx pain TECHNIQUE: Imaging protocol: XR of the sacrum and coccyx, 2 or more views. COMPARISON: US renal BI* [id number] 01/03/2019 12:52 PM FINDINGS: Bones/joints: Mild grade 1 anterolisthesis of L5 on S1. Sacroiliac joints and sacrum are unremarkable. No sacral or coccygeal fractures. Soft tissues: Normal. XR/XR sacrum coccyx min 2V [id number] IMPRESSION: Grade 1 anterolisthesis of L5 on S1.
[2025-02-15 17:07] LABS: HCG Qualitative Urine. Negative (Negative)
[2025-02-15 18:56] VITALS: BP 101/57; PULSE 88; O2SAT 96
--- NOTE | 2025-02-16 13:23 | W.ED.BACK ---
HPI - Back Pain/Injury General: Chief Complaint: Back Pain/Injury Stated Complaint: tailbone pain Time Seen by Provider: 02/15/25 15:54 Source: patient Limitations: no limitations History of Present Illness: Severity: moderate Similar Symptoms Previously: No Quality: dull and aching Exacerbating factors: sitting upright Relieving factors: walking Treatments prior to arrival: NSAIDS and acetaminophen Related Data Previous Rx's ?Medication ?Instructions ?Recorded hydrocodone 5 mg-acetaminophen 325 1 - 2 tab PO Q6H PRN Moderate To 11/05/24 mg tablet Severe Pain #8 tabs ibuprofen 800 mg tablet 800 mg PO TID PRN Abdominal 11/05/24 Discomfort #30 tabs methylprednisolone 4 mg tablets in See Rx Instructions PO .COMPLEX 02/15/25 a dose pack (Medrol ([place])) #21 ea cyclobenzaprine 10 mg tablet 10 mg PO TID #14 tabs 02/16/25 Allergies Allergy/AdvReac Type Severity Reaction Status Date / Time No Known Allergies Allergy Verified 02/15/25 15:45 PFS ED PFSH: Medical History No significant past medical history Surgical History No significant past surgical history Social History Smoking and tobacco/nicotine status: never used tobacco/nicotine Course Vital Signs: Vital signs: Vital Signs Temperature 97.7 F 02/15/25 15:41 Pulse Rate 88 02/15/25 18:56 Respiratory Rate 17 02/15/25 15:41 Blood Pressure 101/57 02/15/25 18:56 Pulse Oximetry 96 02/15/25 18:56 Oxygen Delivery Me thod Room Air 02/15/25 15:41 MDM - Back Pain/Injury Labs Radiology Impressions Sacrum and Coccyx X-Ray 02/15/25 16:16 IMPRESSION: Grade 1 anterolisthesis of L5 on S1. Laboratory Results HCG, Qual Negative (Negative) 02/15/25 16:37 Discharge Plan Discharge Patient Disposition: Home Clinical Impression: Anterolisthesis of lumbosacral spine Condition: Stable Prescriptions: New methylprednisolone [Medrol ([place])] 4 mg tablets,dose pack See Rx Instructions .ROUTE .COMPLEX Qty: 21 0RF Rx Instructions: orally per package directions cyclobenzaprine 10 mg tablet 10 mg PO TID Qty: 14 0RF No Action ibuprofen 800 mg Tablet 800 mg PO TID PRN (Reason: Abdominal Discomfort) Qty: 30 0RF hydrocodone-acetaminophen 5-325 mg Tablet 1 - 2 tab PO Q6H PRN (Reason: Moderate To Severe Pain) Qty: 8 0RF Discharge Orders: Discharge ED (Routine); Ordered 02/15/25 Ordered By: Angela Rousseau Referrals: Crystal Gandhi MD [Primary Care Provider, [facility]] Discharge Diet: Usual diet Discharge Activity: Resume usual activity Patient Instructions: Sacroiliitis (ED) Activity Restrictions/Additional Instructions: Continue your donut pillow Utilize Medrol Dosepak as prescribed Metaxalone is your muscle relaxer we discussed regarding breast-feeding and caution for sedation. Return to ED for further worsening issues as described in your instructions. If you have fever, worsening pain. Recommended probiotic as we discussed to loosen stools. You will need to follow-up with your primary care physician in order to be referred to anesthesia or neurology. Print Language: Ukrainian Coding Level of Care Code ED Bearingizer for Leah Loja
== END 2025-02-15 18:57 | disposition home or self-care (01) ==
PROVIDERS: Emergency Provider Physician Assistant; PCP Family Medicine
DX: M43.16 Spondylolisthesis, lumbar region (principal)
CPT/HCPCS: 72220; 81025; 99283